=== PATIENT | female | born 1965 | race Caucasian/White ===

== ENCOUNTER → 2019-12-27 07:52 | Outpatient (CLI) | payer OTHER, SELFPAY ==
--- NOTE | 2019-12-27 | DI.US.S_ITS ---
PROCEDURE: US ABDOMEN COMPLETE INDICATIONS: RIGHT UPPER QUADRANT PAIN, LUMP TECHNIQUE: Real-time scanning was performed of the abdominal and retroperitoneal organs, with image documentation. COMPARISON: [facility], CT, KIDNEY/ URETER/BLADDER, 02/24/2016, 3:25. FINDINGS: Liver: Liver is normal in size and demonstrates diffuse increased echotexture. Gallbladder: There is a 5.3 mm polyp in the left anterior wall of the gallbladder. No gallstones. No gallbladder wall thickening, pericholecystic fluid or sonographic Montanez's sign. Biliary ducts: Intrahepatic bile ducts are non-dilated. Extrahepatic bile duct caliber measures 3.9 mm. Normal is 6-7 mm or less in diameter, or 10 mm or less post-cholecystectomy. Pancreas: Visualized portions of the pancreas are sonographically normal. Spleen: Spleen is normal in size and homogeneous in echotexture. Kidneys: Kidneys are normal in size and echotexture. Right kidney measures 11.1 cm long; left kidney measures 11.1 cm long. No hydronephrosis or nephrolithiasis. No solid masses. Aorta: Visualized aorta is normal in caliber at less than 3 cm. Iliacs: Proximal common iliac arteries are normal in caliber at less than 2.5 cm. IVC: Intrahepatic inferior vena cava is patent. Miscellaneous: No free abdominal fluid. No mass or abnormality is identified in the area of palpable lump. . IMPRESSION: 1. No sonographic abnormality is seen in the area palpable lump. 2. A 5.3 mm polyp in the gallbladder. A follow-up ultrasound is suggested in 6 months. 3. Diffusely increased hepatic echotexture. This finding is most likely secondary to hepatic fatty infiltration although other hepatocellular disease may have a similar appearance. Recommend clinical correlation. Dictated by: Slava Guerrero M.D. on 12/28/2019 at 16:23 Approved by: Slava Guerrero M.D. on 12/28/2019 at 16:26
== END ==
LOC: US 07:56
PROVIDERS: PCP Family Medicine; Referring Provider Nurse Practitioner Family; Visit Provider Nurse Practitioner Family
DX: R10.11 Right upper quadrant pain (principal); R19.01 Right upper quadrant abdominal swelling, mass and lump; K82.4 Cholesterolosis of gallbladder
CPT/HCPCS: 76700

== ENCOUNTER → 2020-01-28 09:13 | Outpatient (CLI) | payer OTHER, SELFPAY ==
[2020-01-29 10:44] LABS: COVID19 Sendout Not Detected (Not Detect)
== END ==
PROVIDERS: PCP Family Medicine; Visit Provider Physician Assistant
DX: Z11.59 Encounter for screening for other viral diseases (principal)
CPT/HCPCS: 87635

== ENCOUNTER 2020-01-31 06:40 | Day surgery (SDC) | payer OTHER, SELFPAY ==
[2020-01-25 12:45] VITALS: BMI 31.7
[2020-01-31] VITALS (10 sets, daily range): BP systolic 118–147; BP diastolic 69–83; PULSE 60–636; RESP 12–94; TEMP 36–36.6; O2SAT 90–97; BMI 30.2
--- NOTE | 2020-01-31 | PATH_ITS ---
[facility] Accession Number: [id number] . 01 Material submitted: . gallbladder - GALLBLADDER . 02 Diagnosis: Gallbladder, Cholecystectomy: Mild chronic cholecystitis. No evidence of neoplasm. [facility] 02/02/2020 1108 Local . 02 Electronically signed: . Amanuel Damian MD, PhD, Pathologist NPI- [id number] . 01 Gross description: . Received in formalin, labeled gallbladder, is a 7.0 x 3.0 x 2.0 cm previously opened gallbladder. The serosa is solis-green and smooth. There is a minimal amount of green viscous bile and mild cholesterolosis. The mucosa is solis-green and velvety, and the wall thickness measures 0.1 cm. The specimen is entirely submitted in cassette A1. (EA/cmc10 [id number]) /[facility] 02/01/2020 1323 Local . 02 Pathologist provided ICD-10: K81.1, R10.9 . 02 CPT . 346429 Performed at: 01 [facility] [address] [facility], [place], [place] [id number] MD Chris Gonzalez MD Phone: [phone] Performed at: 02 [facility] [address] [place], [place] [id number] MD Carlyn Her MD Phone: [phone]
[2020-01-31] MEDS: LACTATED RINGERS 1,000 ML 42 ML IV (07:30)
[2020-01-31] MEDS: LACTATED RINGERS 1,000 ML 100 ML IV (07:30)
--- NOTE | 2020-01-31 07:41 | PM.PREOP ---
Pre-operative Note COVID-19 COVID-19 status: Negative Result date/Date tested (Pos, Neg/Pending): 01/28/20 Interval Note History & Physical reviewed/Exam performed by Physician: Yes Changes to H&P: No
[2020-01-31] MEDS: CEFAZOLIN 2 GM/100 ML FROZ.PIGGY IV (07:50)
--- NOTE | 2020-01-31 08:19 | SUR.OPER ---
Supine on padded OR bed, head on pillow, arms secured on padded arm boards at <90 degrees abduction, legs uncrossed, safety belt at thigh, tape over blanket over lower legs.
[2020-01-31] MEDS: BUPIVACAINE 0.5% (PF) VIAL 30 ML INJ (08:28)
--- NOTE | 2020-01-31 09:17 | P.OP_ITS ---
Operative Date/Time/Diagnoses Date of procedure: 01/31/20 Time of procedure: 09:05 Pre-op diagnosis: Gallbladder polyp and right upper quadrant and back pain . Possible ventral hernia Post-op diagnosis: other (Very small gallbladder polyp. Soft stone. No evidence of a ventral hernia.) Procedure & Clinicians Procedure: Laparoscopic cholecystectomy. Same procedure as scheduled: Yes Indications: See preop diagnosis Surgeon: Kumar Winn Click Yes if Unassisted: Yes Anesthesia Type: General Operative Notes Findings: See postop diagnosis Closure Type: primary Specimen(s): other (Gallbladder and contents.) Prosthetic devices, grafts, tissues, transplants, or devices: None Estimated Blood Loss (mL): 5 Blood products transfused: none Procedure in detail: The patient was placed supine on the operating room table and underwent general endotracheal anesthesia. The patient was prepped and draped in the usual fashion. Local anesthetic was infiltrated near the umbilicus and curvilinear incision made and carried down through fascia into the peritoneal cavity. Stay sutures of 0 Vicryl were placed in the fascia. A 12 mm port was placed. The abdomen was insufflated. The patient was repositioned. Local anesthetic was infiltrated in 3 areas under the right costal margin and 3 small incisions made followed by placing 3 5 mm ports under direct laparoscopic camera vision internally. The gallbladder was grasped and elevated. Dissection was begun near its end. A ductal structure and vascular structure singular nature going directly the gallbladder were identified and from surroun ding structures. Four clips were placed on the vascular structure and 3 on the duct. They were divided leaving 2 clips on the cystic duct and 3 on the artery. One additional clip was placed on the end of the cystic duct.. The gallbladder was then dissected from its bed in the liver using cautery. There was no spillage. It was detached and removed through the umbilical port. the gallbladder was opened and found to have a very small polyp like lesion as well as a soft stone within its lumen. I examined the ventral abdominal wall in the area of the patient that she felt a bulge. I could not identify any defect in the posterior fascia on could not palpate any defect. I also dissected some of the fat from the abdominal wall at the falciform ligament to the midline and could not identify any defect in the fascia at that level either. The ports were all removed after irrigating the right upper quadrant suction it free of fluid. The port sites were all irrigated. The stay sutures at the umbilicus were elevated. A 2 0 PDS suture was placed between them. The Vicryl and PDS sutures were then tied. The skin in all areas was closed with interrupted 4 0 Vicryl subcuticular stitches. Steri-Strips and Mastisol were applied. Band- Aids were placed and the patient was awakened, extubated and taken to the recovery area in good condition. Complications: none Post-operative Condition: stable Disposition: PACU
[2020-01-31] MEDS: fentaNYL 100 MCG/2 ML INJ IV ×2 (09:20→09:28)
[2020-01-31] MEDS: ONDANSETRON 4 MG/2 ML INJ IV (09:20)
[2020-01-31] MEDS: OXYCODONE/ACETAMINOPHEN 5/325 TABLET 1 TAB PO (09:44)
== END 2020-01-31 10:20 | disposition home or self-care (01) ==
PROVIDERS: PCP Family Medicine; Referring Provider Family Medicine; Visit Provider Specialist
PROC: 0FT44ZZ Resection of Gallbladder, Percutaneous Endoscopic Approach (ICD-10-PCS; CPT 47562; principal; 2020-01-31 07:45)
DX: K81.1 Chronic cholecystitis (principal); R10.11 Right upper quadrant pain; E03.9 Hypothyroidism, unspecified; F17.200 Nicotine dependence, unspecified, uncomplicated
CPT/HCPCS: 47562; J0690; J1100; J2250; J2405; J2704; J3010

== ENCOUNTER 2021-07-31 20:08 | Observation (INO) | payer BC, SELFPAY ==
[2021-07-31 20:22] VITALS: BP 133/77; PULSE 94; RESP 22; TEMP 37; O2SAT 98; BMI 32.9
[2021-07-31 20:49] LABS: Add Manual Diff / Slide Review NO; Basophils Absolute Auto 100 /uL (0-100); Basophils Percent Auto 0.6 % (0-2); Eosinophils Absolute Auto 200 /uL (0-450); Eosinophils Percent Auto 2.3 % (2-4); Hematocrit 40.1 % (36-46); Hemoglobin 13.6 g/dL (12.0-16.0); Lymphocytes Absolute Auto 2100 /uL (1100-4500); Lymphocytes Percent Auto 20.4 % (25-40); Mean Corpuscular HGB Conc 33.8 % (30-36); Mean Corpuscular Volume 88.9 fL (80-100); Monocytes Absolute Auto 400 /uL (0-900); Monocytes Percent Auto 4.2 % (3-14); Neutrophils Absolute Auto 7500 /uL (1500-7000); Neutrophils Percent Auto 72.5 % (50-75); Platelet Count 271 X10^3/uL (150-400); Red Blood Cell Count 4.51 X10^6/uL (4.0-5.2); White Blood Cell Count 10.3 X10^3/uL (4.5-11.0)
[2021-07-31 21:10] LABS: Alanine Aminotransferase 29 IU/L (<35); Albumin 4.1 g/dL (3.5-5.0); Albumin Globulin Ratio 1.3 (1.0-2.8); Alkaline Phosphatase 120 U/L (38-126); Aspartate Aminotransferase 28 IU/L (14-36); BUN Creatinine Ratio 29.7 (6-22); Bilirubin Total 0.3 mg/dL (0.2-1.3); Blood Urea Nitrogen 22 mg/dL (7-17); Carbon Dioxide 24 mmol/L (22-32); Chloride 110 mmol/L (98-107); Estimated Glomerular Filt Rate > 60.0 mL/min (>60); Globulin 3.1 g/dL (1.7-4.1); Glucose 107 mg/dL (70-100); Lipase 40 U/L (23-300); Potassium 3.9 mmol/L (3.4-5.1); Sodium 139 mmol/L (137-145); Total Protein 7.2 g/dL (6.3-8.2)
[2021-07-31 21:11] LABS: HEMOLYSIS < 15 (0-50)
--- NOTE | 2021-07-31 21:36 | DI.CT.S_ITS ---
PROCEDURE: CT ABDOMEN PELVIS W CON INDICATIONS: Left-sided abdominal pain TECHNIQUE: After the administration of intravenous contrast, axial sections acquired from the lung bases to the pubic symphysis. Coronal and sagittal reformats were performed. For radiation dose reduction, the following was used: automated exposure control, adjustment of mA and/or kV according to patient size. COMPARISON: None. FINDINGS: Image quality: Excellent. Lung bases: Unremarkable. Heart: No significant findings. ABDOMEN: Liver: Unremarkable. Gallbladder: Is surgically absent Biliary ducts: Unremarkable. Pancreas: Unremarkable. Spleen: Unremarkable. Adrenal Glands: Left adrenal nodule demonstrating postcontrast Hounsfield units of 39, measuring roughly 23 mm diameter.. Kidneys and Ureters: Unremarkable. Stomach and Bowel: Stomach is within normal limits. Multiple moderately thickened fluid-filled small bowel loops within the left hemiabdomen are present. Appendix is normal. Colon is nondistended. Diverticulosis of the descending and sigmoid colon. Moderate thickening of the sigmoid colon which demonstrates moderate surrounding fat stranding. No pericolonic abscess. Peritoneum: Small amount of scattered pneumoperitoneum. Trace free fluid in the pelvis. Ventral Wall: No hernias. Abdominal Nodes: No retroperitoneal or mesenteric adenopathy by size criteria. Vessels: Aorta and inferior vena cava are normal in size. PELVIS: Pelvic Organs: Unremarkable. Bladder: Unremarkable. Pelvic Nodes: No enlarged lymph nodes. Miscellaneous: No hernias are seen. Bones: Unremarkable. IMPRESSION: 1. Perforated diverticulitis with free pneumoperitoneum. No pericolonic abscess. Follow-up colonoscopy is recommended to exclude underlying neoplasm. 2. Indeterminate left adrenal nodule, which could be further assessed with nonemergent outpatient follow-up adrenal protocol MRI, if clinically indicated. 3. Normal appendix. 4. Findings discussed with Dr. Molina on 07/31/2021 at 21:57 hours. Dictated by: Digna Lord M.D. on 07/31/2021 at 21:54 Approved by: Digna Lord M.D. on 07/31/2021 at 21:57
--- NOTE | 2021-07-31 21:36 | ED_ITS ---
HPI - General Adult General Chief complaint: Abdominal Pain Stated complaint: severe abd pain Time Seen by Provider: 07/31/21 21:28 Source: patient Mode of arrival: Ambulatory History of Present Illness HPI narrative: Patient is a 55-year-old female who is here for evaluation of bilateral lower abdominal pain. States that it started at the end of last week but it has worsened over the past 24 hours. She actually stated that a couple days after the onset of the symptoms her pain actually improved. It never completely went away. Some nausea but no vomiting. No fevers. No change in bowel habits. No urinary symptoms. Has had her gallbladder removed but no other abdominal surgeries. Related Data Home Medications Medication Instructions Recorded Confirmed dextroamphetamine-amphetamine 10 30 mg PO DAILY #0 02/24/16 02/10/20 mg tablet (Adderall) levothyroxine 88 mcg capsule 100 mcg PO DAILY 01/25/20 02/10/20 Previous Rx's Medication Instructions Recorded hydrocodone 5 mg-acetaminophen 325 See Rx Instructions .ROUTE 01/31/20 mg tablet .COMPLEX PRN #14 tab Allergies Allergy/AdvReac Type Severity Reaction Status Date / Time codeine Allergy Intermediate Rash Verified 02/10/20 13:07 Penicillins Allergy Intermediate Rash Verified 02/10/20 13:07 Review of Systems Review of Systems ROS Unobtainable: All systems reviewed & are unremarkable except as noted in HPI and below Constitutional Constitutional: Denies fever(s) Cardiovascular Cardiovascular: Denies chest pain and Denies dyspnea Respiratory Respiratory: Denies dyspnea Gastrointestinal Gastrointestinal: Reports as per HPI Patient History Medical History Easy bruisability Gallstones Hypothyroid Surgical History Hx of appendectomy Hx of tonsillectomy (1981) Hx of tubal ligation (1989) Family History Mother Cancer Social History marital status: unknown household members: significant other and friend(s) occupational status: employed Smoking Status: Current every day smoker alcohol intake: current substance use type: does not use Smoking Status: Current every day smoker alcohol intake frequency: a few times a week Substance Use Type: does not use Exam Initial Vital Signs Initial Vital Signs: Vital Signs Temperature 98.6 F 07/31/21 20:22 Pulse Rate 94 H 07/31/21 20:22 Respiratory Rate 22 07/31/21 20:22 Blood Pressure 133/77 07/31/21 20:22 Pulse Oximetry 98 07/31/21 20:22 Const General: cooperative and comfortable HENMT Head: normal to inspection and normocephalic Eyes General: appearance normal, both eyes and all related structures Neck Neck: normal visual inspection Chest Chest: normal inspection of the chest Resp Effort & Inspection: normal respiratory effort Auscultation: clear to auscultation bilaterally Cardio Rate: regular rate Rhythm: regular rhythm GI Inspection: normal to inspection Palpation: soft, No firm, No guarding and tender (Lower abdomen) Skin General: no rashes or lesions noted Neuro General: patient alert, patient awake and moves all extremities Extrem General: normal to inspection and capillary refill normal Psych Appearance: grossly normal Scores GCS [place] coma scale eye opening: Spontaneous [place] coma scale verbal response: Orientated Jennifer coma scale motor response: Obey commands Jennifer coma scale total score: 15 Course Orders Ordered: ED Orders 07/31/21 20:27 EKG-12 Lead Stat 07/31/21 20:40 Complete Blood Count AUTO DIFF Stat Comprehensive Metabolic Panel Stat Lactate (Lactic Acid) Stat Lipase Stat 07/31/21 21:36 CT abdomen pelvis w con Stat 07/31/21 22:03 Blood Culture Stat 07/31/21 22:11 Consult to General Surgery Stat 07/31/21 22:27 COVID19 -Nasal swab/Pre-Proc Stat Enoxaparin Sodium (Enoxaparin 40 Mg/0.4 Ml Syringe) 40 mg SUBCUT DAILY TA Hydromorphone HCl (Hydromorphone 0.5 Mg Inj) 0.5 mg IV Q4H PRN PRN Reason: Breakthrough pain only (8-10) Sodium Chloride (Normal Saline 0.9%) 1,000 mls @ 100 mls/hr IV CONT TA Ciprofloxacin (Cipro) 400 mg in 200 mls @ 200 mls/hr IV Q12H TA Metronidazole (Flagyl) 500 mg in 100 mls @ 100 mls/hr IV Q6H TA Ketorolac Tromethamine (Ketorolac 30 Mg/Ml Vial) 15 mg IV Q6H PRN PRN Reason: Pain, Moderate (4-6) Stop: 08/04/21 00:14 Naloxone HCl (Naloxone 0.4 Mg/Ml Vial) 0.2 mg IV Q2MIN PRN PRN Reason: Opiate Reversal Ondansetron HCl (Ondansetron 4 Mg/2 Ml Inj) 4 mg IV Q6HR PRN PRN Reason: Nausea And Vomiting Discontinued Medications Hydromorphone HCl (Hydromorphone 0.5 Mg Inj) 0.5 mg IV NOW ONE Stop: 07/31/21 22:45 Last Admin: 07/31/21 22:49 Dose: 0.5 mg Documented by: SAIRA Sodium Chloride (Normal Saline 0.9%) 1,000 mls @ 1,000 mls/hr IV BOLUS ONE Stop: 07/31/21 22:35 Last Admin: 07/31/21 21:56 Dose: 1,000 mls/hr Documented by: SAIRA Ciprofloxacin (Cipro) 400 mg in 200 mls @ 200 mls/hr IV NOW ONE Stop: 07/31/21 23:02 Last Admin: 08/01/21 00:04 Dose: 200 mls/hr Documented by: SAIRA Metronidazole (Flagyl) 500 mg in 100 mls @ 100 mls/hr IV NOW ONE Stop: 07/31/21 23:02 Last Infusion: 07/31/21 23:26 Dose: 0 mls/hr Documented by: Admin: 07/31/21 22:20 Dose: 100 mls/hr Documented by: SAIRA Ondansetron HCl (Ondansetron 4 Mg/2 Ml Inj) 4 mg IV Q2HR PRN PRN Reason: Nausea And Vomiting Vital Signs Vital signs: Vital Signs - 8 hr 07/31/21 20:22 Temperature 98.6 F Pulse Rate 94 H Respiratory Rate 22 Blood Pressure 133/77 Pulse Oximetry 98 Medical Decision Making Medical Records Medical records reviewed: Yes I reviewed the patient's medical records. Lab Data Lab results reviewed: Yes I reviewed the patient's lab results. Result diagrams: 07/31/21 20:40 07/31/21 20:40 Labs: Lab Results 07/31/21 07/31/21 07/31/21 Range/Units 20:40 20:40 20:40 WBC 10.3 (4.5-11.0) X10^3/uL RBC 4.51 (4.0-5.2) X10^6/uL Hgb 13.6 (12.0-16.0) g/dL Hct 40.1 (36-46) % MCV 88.9 (80-100) fL MCH 30.0 (26-34) PG MCHC 33.8 (30-36) % RDW 14.0 (11.6-14.8) % Plt Count 271 (150-400) X10^3/uL Neut % (Auto) 72.5 (50-75) % Lymph % (Auto) 20.4 L (25-40) % Crowley % (Auto) 4.2 (3-14) % Eos % (Auto) 2.3 (2-4) % Baso % (Auto) 0.6 (0-2) % Neut # (Auto) 7500 H (3682-9191) /uL Lymph # (Auto) 2100 (4590-5378) /uL Crowley # (Auto) 400 (0-900) /uL Eos # (Auto) 200 (0-450) /uL Baso # (Auto) 100 (0-100) /uL Sodium 139 (137-145) mmol/L Potassium 3.9 (3.4-5.1) mmol/L Chloride 110 H (98-107) mmol/L Carbon Dioxide 24 (22-32) mmol/L BUN 22 H (7-17) mg/dL Creatinine 0.74 (0.52-1.04) mg/dL Estimated GFR > 60.0 (>60) mL/min BUN/Creatinine Ratio 29.7 H (6-22) Glucose 107 H (70-100) mg/dL Lactate 0.6 L (0.7-2.1) mmol/L Calcium 9.0 (8.4-10.2) mg/dL Total Bilirubin 0.3 (0.2-1.3) mg/dL AST 28 (14-36) IU/L ALT 29 (<35) IU/L Alkaline Phosphatase 120 (38-126) U/L Total Protein 7.2 (6.3-8.2) g/dL Albumin 4.1 (3.5-5.0) g/dL Globulin 3.1 (1.7-4.1) g/dL Albumin/Globulin Ratio 1.3 (1.0-2.8) Lipase 40 (23-300) U/L SARS-CoV-2 (PCR) (Negative) 07/31/21 Range/Units 22:27 WBC (4.5-11.0) X10^3/uL RBC (4.0-5.2) X10^6/uL Hgb (12.0-16.0) g/dL Hct (36-46) % MCV (80-100) fL MCH (26-34) PG MCHC (30-36) % RDW (11.6-14.8) % Plt Count (150-400) X10^3/uL Neut % (Auto) (50-75) % Lymph % (Auto) (25-40) % Crowley % (Auto) (3-14) % Eos % (Auto) (2-4) % Baso % (Auto) (0-2) % Neut # (Auto) (3453-5964) /uL Lymph # (Auto) (6735-2143) /uL Crowley # (Auto) (0-900) /uL Eos # (Auto) (0-450) /uL Baso # (Auto) (0-100) /uL Sodium (137-145) mmol/L Potassium (3.4-5.1) mmol/L Chloride (98-107) mmol/L Carbon Dioxide (22-32) mmol/L BUN (7-17) mg/dL Creatinine (0.52-1.04) mg/dL Estimated GFR (>60) mL/min BUN/Creatinine Ratio (6-22) Glucose (70-100) mg/dL Lactate (0.7-2.1) mmol/L Calcium (8.4-10.2) mg/dL Total Bilirubin (0.2-1.3) mg/dL AST (14-36) IU/L ALT (<35) IU/L Alkaline Phosphatase (38-126) U/L Total Protein (6.3-8.2) g/dL Albumin (3.5-5.0) g/dL Globulin (1.7-4.1) g/dL Albumin/Globulin Ratio (1.0-2.8) Lipase (23-300) U/L SARS-CoV-2 (PCR) Negative (Negative) Imaging Data CT scan - abdomen/pelvis: Radiologist's Impression: [address] [address] [address] Scan Report Signed Patient: Marci Motta MR#: [id number] : 1965 Acct:[id number] Age/Sex: 55 / F Date of Service: 07/31/21 Loc: ED Accession Number: [id number] ?? Procedure: CT abdomen pelvis w con Ordering Provider: Kwabena Molina D.O. PROCEDURE:? CT ABDOMEN PELVIS W CON ? INDICATIONS:? Left-sided abdominal pain ? TECHNIQUE:? After the administration of intravenous contrast, axial sections acquired from the lung bases to the pubic symphysis.? Coronal and sagittal reformats were performed.? For radiation dose reduction, the following was used:? automated exposure control, adjustment of mA and/or kV according to patient size.? ? COMPARISON:? None. ? FINDINGS:? Image quality:? Excellent.? ? Lung bases:? Unremarkable. Heart:? No significant findings. ? ABDOMEN: Liver:? Unremarkable.? ? Gallbladder:? Is surgically absent? ? Biliary ducts:? Unremarkable.? ? Pancreas:? Unremarkable.? ? Spleen:? Unremarkable.? ? Adrenal Glands:? Left adrenal nodule demonstrating postcontrast Hounsfield units of 39, measuring roughly 23 mm diameter..? ? Kidneys and Ureters:? Unremarkable.? ? ? Stomach and Bowel:? Stomach is within normal limits.? Multiple moderately thickened fluid-filled small bowel loops within the left hemiabdomen are present.? Appendix is normal.? Colon is nondistended.? Diverticulosis of the descending and sigmoid colon.? Moderate thickening of the sigmoid colon which demonstrates moderate surrounding fat stranding.? No pericolonic abscess.? Peritoneum:? Small amount of scattered pneumoperitoneum.? Trace free fluid in the pelvis. ? ? Ventral Wall: ? No hernias.? Abdominal Nodes:? No retroperitoneal or mesenteric adenopathy by size criteria.? Vessels:? Aorta and inferior vena cava are normal in size.? ? PELVIS: Pelvic Organs:? Unremarkable.? ? Bladder:? Unremarkable.? ? Pelvic Nodes: No enlarged lymph nodes.? Miscellaneous: No hernias are seen. ? ? ? Bones:? Unremarkable.? IMPRESSION:? 1. Perforated diverticulitis with free pneumoperitoneum.? No pericolonic abscess.? Follow-up colonoscopy is recommended to exclude underlying neoplasm. 2. Indeterminate left adrenal nodule, which could be further assessed with nonemergent outpatient follow-up adrenal protocol MRI, if clinically indicated. 3. Normal appendix. 4. Findings discussed with Dr. Molina on 07/31/2021 at 21:57 hours.? ? ? Dictated by: Digna Lord M.D. on 07/31/2021 at 21:54 ? ? Approved by: Digna Lord M.D. on 07/31/2021 at 21:57?? ECG Data Attestation: I personally reviewed and interpreted this ECG as follows: Interpretation: Sinus rhythm Ventricular rate 91 Normal axis Normal QRS axis normal QTC No ST T wave changes MDM Narrative Medical decision making narrative: Initially patient declined need for pain medication. Labs are reassuring. CT scan shows diverticulitis with what appears to be a perforation with free air in the abdomen. There is no signs of abscess. Given her allergies Cipro and Flagyl was ordered. I did discuss the case with Dr. White on-call for General surgery who asked the patient be admitted to the medicine service. He stated that we would attempt non operative management of her diverticulitis for now. Discussed the case with [facility] who will admit for further evaluation and treatment. I did discuss the findings of the CT scan with the patient. We did discuss the need for admission. She expressed understanding and agreement as well. Discharge Plan Departure Patient Disposition: Admitted As Inpatient Clinical Impression: Diverticulitis of colon with perforation Admit Date/Time: 07/31/21 23:27 Admit Provider: Alejandra Marquez
[2021-07-31] MEDS: SODIUM CHLORIDE 0.9% 1,000 ML 1000 ML IV (21:56)
[2021-07-31 22:13] LABS: Lactate (Lactic Acid) 0.6 mmol/L (0.7-2.1)
[2021-07-31] MEDS: metroNIDAZOLE 500 MG/100 ML PIGGYBACK 100 MG IV (22:20)
[2021-07-31] MEDS: HYDROMORPHONE 0.5 MG INJ IV (22:49)
[2021-07-31 23:06] LABS: COVID19 -Nasal RAPID Negative (Negative)
[2021-07-31 23:33] VITALS: BMI 33.5
[2021-08-01] MEDS: CIPROFLOXACIN 400 MG/200 ML PIGGYBACK 200 MG IV (00:04)
[2021-08-01 00:18] VITALS: BP 116/58; PULSE 89; RESP 20; O2SAT 98
--- NOTE | 2021-08-01 00:46 | P.HP_ITS ---
History of Present Illness History of Present Illness Date Patient Seen: 08/01/21 Time Patient Seen: 00:46 Chief complaint: severe abd pain Narrative: Marci Motta is a 55-year-old female smoker with current diagnosis of hypothyroidism and ADD presented to the emergency department with a almost 1 week history of abdominal discomfort. She denies having diarrhea, fever but has significant abdominal pain. She denies nausea vomiting, chest pain, constipation, upper lower extremity neuropathies. CT scan of the abdomen and pelvis indicated perforated diverticulitis with free pneumoperitoneum, a left adrenal nodule and a normal appendix. ED provider consulted with general surgery who will see the patient in the morning. Recommended NPO, fluids and pain control. Patient is afebrile, blood pressure 116/58, heart rate 89, respiratory rate 20, oxygen saturation 98% on room air she weighs 83.2 kg with a BMI of 33.5. CBC is unremarkable she has a mild left shift of 7500, glucose was mildly elevated at 107, lactate 0.6, liver enzymes within normal limits, COVID-19 PCR is negative. Patient History Medical History (Updated 08/01/21 @ 03:22 by DIPESH Hernandez) Easy bruisability Gallstones Hypothyroid Tobacco dependence Surgical History (Updated 08/01/21 @ 03:22 by DIPESH Hernandez) Hx of appendectomy Hx of cholecystectomy Hx of tonsillectomy (1981) Hx of tubal ligation (1989) Family & Social History Family History (Updated 08/01/21 @ 03:30 by DIPESH Hernandez) Mother Cancer Eosinophilia Father Old age Social History: household members significant other,friend(s) Safety & Behavioral: Feels Safe in Current Yes Environment Tobacco & Substance use: Tobacco type cigarettes, 1 pack per day Smoking Status Current every day smoker alcohol intake current alcohol intake frequency a few times a week Substance Use Type does not use Meds Home Medications and Allergies Home Medications Medication Instructions Recorded Confirmed Type dextroamphetamine-amphetamine 10 30 mg PO DAILY #0 02/24/16 08/01/21 History mg tablet (Adderall) levothyroxine 88 mcg capsule 100 mcg PO DAILY 01/25/20 08/01/21 History Allergies Allergy/AdvReac Type Severity Reaction Status Date / Time codeine Allergy Intermediate Rash Verified 02/10/20 13:07 Penicillins Allergy Intermediate Rash Verified 02/10/20 13:07 Review of Systems Review of Systems ROS: Yes All systems reviewed with the patient and are negative except as otherwise documented Exam Vital Signs (past 8 hours): - 07/31/21 20:22 08/01/21 00:18 Temperature 98.6 F Pulse Rate 94 H 89 Respiratory Rate 22 20 Blood Pressure 133/77 116/58 L Pulse Oximetry 98 98 Oxygen Delivery Method Room Air Narrative Exam Narrative: Gen: Alert, oriented, well-nourished 55 y.o. female, mildly distressed from pain HEENT: normocephalic, atraumatic, conjunctiva clear, sclera non-icteric, oral mucosa pink and moist Neck: supple, full ROM, no JVD, trachea is midline Resp: Lungs CTA, non-labored breathing CV: RRR, no murmur or rubs Abd: soft, diffusely tender, hypoactive BTs Skin: no lesions or rashes, dry and intact Neuro: Alert and oriented X 4 w/no focal deficits. Speech clear and coherent. Extremities: moves all 4 extremities, is ambulatory, negative Xenia?s sign Psyche: normal mood and affect. Objective Labs Result Diagrams: 07/31/21 20:40 07/31/21 20:40 Labs: Laboratory Results - last 24 hr 07/31/21 07/31/21 07/31/21 20:40 20:40 20:40 WBC 10.3 RBC 4.51 Hgb 13.6 Hct 40.1 MCV 88.9 MCH 30.0 MCHC 33.8 RDW 14.0 Plt Count 271 Neut % (Auto) 72.5 Lymph % (Auto) 20.4 L [place] % (Auto) 4.2 Eos % (Auto) 2.3 Baso % (Auto) 0.6 Neut # (Auto) 7500 H Lymph # (Auto) 2100 [place] # (Auto) 400 Eos # (Auto) 200 Baso # (Auto) 100 Sodium 139 Potassium 3.9 Chloride 110 H Carbon Dioxide 24 BUN 22 H Creatinine 0.74 Estimated GFR > 60.0 BUN/Creatinine Ratio 29.7 H Glucose 107 H Lactate 0.6 L Calcium 9.0 Total Bilirubin 0.3 AST 28 ALT 29 Alkaline Phosphatase 120 Total Protein 7.2 Albumin 4.1 Globulin 3.1 Albumin/Globulin Ratio 1.3 Lipase 40 SARS-CoV-2 (PCR) 07/31/21 22:27 WBC RBC Hgb Hct MCV MCH MCHC RDW Plt Count Neut % (Auto) Lymph % (Auto) [place] % (Auto) Eos % (Auto) Baso % (Auto) Neut # (Auto) Lymph # (Auto) [place] # (Auto) Eos # (Auto) Baso # (Auto) Sodium Potassium Chloride Carbon Dioxide BUN Creatinine Estimated GFR BUN/Creatinine Ratio Glucose Lactate Calcium Total Bilirubin AST ALT Alkaline Phosphatase Total Protein Albumin Globulin Albumin/Globulin Ratio Lipase SARS-CoV-2 (PCR) Negative Assessment & Plan Assessment & Plan narrative: Marci Motta is admitted to the inpatient service for eventual surgical management of a perforated diverticulitis of descending and sigmoid colon. 1. Perforated diverticulitis of descending and sigmoid colon, acute, present on admission * General surgery to see her in the morning * She is NPO * Pain control with IV Dilaudid 1 mg q.3 hours as needed 2. Hypothyroidism, chronic * Patient is NPO and will receive her next dose of levothyroxine after surgery when able to take in by mouth 3. ADHD, chronic * Patient is NPO and will receive her next dose of Adderall after surgery when able to take in by mouth VTE Prophylaxis: Wells risk score 0 [X] Bilateral SCDs Patient is admitted to the inpatient service due to the severity of disease, risks of further disease progression and this stay is expected to exceed 2 midnights. FEN: IV fluids: NS at 100 ml/hour, diet: NPO, labs: CBC, C/BMP, liver enzymes, [facility] Dr. White, General Surgery, care and involvement in the patient?s care is appreciated. Dispo: probable discharge to home Code status: Full code as discussed with the patient who identifies Flaco HASSAN as her surrogate and POA. [X] I have utilized all available immediate resources to obtain, update, or review of the patient's current medications COVID-19 COVID-19 status: Negative Result date/Date tested (Pos, Neg/Pending): 08/01/21 Scores Wells' Criteria for PE Clinical signs and symptoms of DVT: No PE is #1 Dx or equally likely: No Heart rate > 100: No Immobilization at least 3 days or surg in previous 4 weeks: No History of PE or DVT: No Hemoptysis: No Malignancy w/Treatment within 6 months or palliative: No Wells' PE Score total: 0 Quality VTE Deep Vein Thrombosis/Pulmonary Embolism Present on Admission: No MIPS - Admit I confirm the patient?s Advance Care Plan is present, Code status is documented, Surrogate decision maker is in patient?s record [If Yes, STOP here]: Yes MIPS - DC The patient has current or prior documentation of left ventricular ejection fraction (LVEF) less than 40%, or moderate or severely depressed left ventricular systolic function.: No
[2021-08-01] MEDS: SODIUM CHLORIDE 0.9% 1,000 ML 100 ML IV ×2 (01:14→07:28)
[2021-08-01] MEDS: HYDROMORPHONE 0.5 MG INJ IV (01:14)
[2021-08-01] MEDS: HYDROMORPHONE 1 MG INJ IV ×3 (01:51→12:38)
[2021-08-01 06:26] LABS: Add Manual Diff / Slide Review NO; Basophils Absolute Auto 100 /uL (0-100); Basophils Percent Auto 0.6 % (0-2); Eosinophils Absolute Auto 0 /uL (0-450); Eosinophils Percent Auto 0.2 % (2-4); Hematocrit 37.7 % (36-46); Hemoglobin 12.6 g/dL (12.0-16.0); Lymphocytes Absolute Auto 1200 /uL (1100-4500); Lymphocytes Percent Auto 7.4 % (25-40); Mean Corpuscular HGB Conc 33.5 % (30-36); Mean Corpuscular Hemoglobin 29.6 PG (26-34); Mean Corpuscular Volume 88.2 fL (80-100); Monocytes Absolute Auto 600 /uL (0-900); Monocytes Percent Auto 3.7 % (3-14); Neutrophils Absolute Auto 14700 /uL (1500-7000); Neutrophils Percent Auto 88.1 % (50-75); Platelet Count 251 X10^3/uL (150-400); Red Blood Cell Count 4.27 X10^6/uL (4.0-5.2); Red Cell Distribution Width 14.1 % (11.6-14.8); White Blood Cell Count 16.7 X10^3/uL (4.5-11.0)
[2021-08-01 06:40] LABS: Alanine Aminotransferase 29 IU/L (<35); Albumin 3.4 g/dL (3.5-5.0); Albumin Globulin Ratio 1.2 (1.0-2.8); Alkaline Phosphatase 90 U/L (38-126); Aspartate Aminotransferase 27 IU/L (14-36); BUN Creatinine Ratio 27.3 (6-22); Bilirubin Total 0.6 mg/dL (0.2-1.3); Bilirubin Unconjugated 0.5 mg/dL (0.0-1.1); Blood Urea Nitrogen 15 mg/dL (7-17); Calcium 8.5 mg/dL (8.4-10.2); Carbon Dioxide 26 mmol/L (22-32); Chloride 109 mmol/L (98-107); Estimated Glomerular Filt Rate > 60.0 mL/min (>60); Globulin 2.9 g/dL (1.7-4.1); Glucose 121 mg/dL (70-100); HEMOLYSIS < 15 (0-50); Potassium 3.9 mmol/L (3.4-5.1); Sodium 137 mmol/L (137-145); Total Protein 6.3 g/dL (6.3-8.2)
[2021-08-01] MEDS: KETOROLAC 30 MG/ML VIAL 15 MG IV (07:24)
[2021-08-01] MEDS: ENOXAPARIN 40 MG/0.4 ML SYRINGE SUBCUT (08:49)
[2021-08-01 08:52] VITALS: BP 100/59; PULSE 70; RESP 18; TEMP 36.8; O2SAT 95
[2021-08-01 12:26] VITALS: BP 109/81; PULSE 89; RESP 16; O2SAT 91
--- NOTE | 2021-08-01 14:49 | PC.NURSE ---
Patient stated I'm either going outside for a cigarette or I'm going home right now. Dr. Amador called to bedside, nicotine patch offered. Dr. Amador wrote for discharge with PO abx, sent to [facility] in [place]. No tele, IV removed, discharge papers given. Patient left hastily.
== END 2021-08-01 14:40 | disposition home or self-care (01) | DRG 392 ==
LOC: ED 22:44 → ICU 08-01 09:58 → AC 05-02 14:41
PROVIDERS: Admitting Provider Nurse Practitioner Family; Emergency Provider Emergency Medicine; PCP Family Medicine; Referring Provider Emergency Medicine; Visit Provider Nurse Practitioner Family
DX: K57.20 Diverticulitis of large intestine with perforation and abscess without bleeding (principal); F17.210 Nicotine dependence, cigarettes, uncomplicated; Z20.822 Contact with and (suspected) exposure to COVID-19
CPT/HCPCS: 36415; 74177; 80048; 80053; 80076; 83605; 83690; 85025; 87635; 87797; 96361; 96365; 96367; 96375; 99284; C9803; G0378; J0744; J1170; J1650; J1885; Q9967

== ENCOUNTER 2021-08-03 15:57 | Inpatient (IN) | payer BC, SELFPAY ==
[2021-08-03] VITALS (12 sets, daily range): BP systolic 101–127; BP diastolic 56–74; PULSE 87–113; RESP 16–34; TEMP 36.9–37.2; O2SAT 91–99; BMI 32.9; BMI 33.6
--- NOTE | 2021-08-03 16:32 | DI.RAD.S_ITS ---
PROCEDURE: XR CHEST 1V INDICATIONS: suspected sepsis TECHNIQUE: One view of the chest was acquired. COMPARISON: [facility], CT, CT ABDOMEN PELVIS W CON, 07/31/2021, 21:42. [facility], CT, CT ABDOMEN PELVIS W CON, 08/03/2021, 17:16. FINDINGS: Surgical changes and devices: None. Lungs and pleura: There are confluent left basilar opacities consistent with consolidation. Linear right basilar opacities may also represent consolidation, versus atelectasis. No pleural effusions or pneumothorax. Mediastinum: Mediastinal contours appear normal. Heart size is normal. Bones and chest wall: No suspicious bony lesions. Overlying soft tissues appear unremarkable. IMPRESSION: 1. Left lower lobe consolidation suspicious for pneumonia. Linear right basilar atelectasis or consolidation also demonstrated. Dictated by: Chris Bedolla M.D. on 08/03/2021 at 18:06 Approved by: Chris Bedolla M.D. on 08/03/2021 at 18:07
[2021-08-03 16:51] LABS: Add Manual Diff / Slide Review NO; Basophils Absolute Auto 100 /uL (0-100); Basophils Percent Auto 0.5 % (0-2); Eosinophils Absolute Auto 100 /uL (0-450); Eosinophils Percent Auto 0.4 % (2-4); Hematocrit 38.6 % (36-46); Hemoglobin 12.9 g/dL (12.0-16.0); Lymphocytes Absolute Auto 1500 /uL (1100-4500); Lymphocytes Percent Auto 8.3 % (25-40); Mean Corpuscular HGB Conc 33.4 % (30-36); Mean Corpuscular Hemoglobin 29.7 PG (26-34); Mean Corpuscular Volume 88.9 fL (80-100); Monocytes Absolute Auto 1100 /uL (0-900); Neutrophils Absolute Auto 15000 /uL (1500-7000); Neutrophils Percent Auto 84.8 % (50-75); Platelet Count 289 X10^3/uL (150-400); Red Blood Cell Count 4.34 X10^6/uL (4.0-5.2); Red Cell Distribution Width 13.8 % (11.6-14.8); White Blood Cell Count 17.7 X10^3/uL (4.5-11.0)
[2021-08-03] MEDS: SODIUM CHLORIDE 0.9% 1,000 ML 1000 ML IV (16:57)
[2021-08-03 16:59] LABS: INR 1.3 (0.9-1.3); Prothrombin Time 14.8 SECONDS (10.1-12.7)
[2021-08-03 17:01] LABS: PTT Partial Thromboplastin Tim 35 SECONDS (26.4-36.2)
[2021-08-03 17:02] LABS: Lactate (Lactic Acid) 0.6 mmol/L (0.7-2.1)
[2021-08-03 17:04] LABS: Alanine Aminotransferase 26 IU/L (<35); Albumin 3.7 g/dL (3.5-5.0); Albumin Globulin Ratio 1.2 (1.0-2.8); Alkaline Phosphatase 120 U/L (38-126); Aspartate Aminotransferase 24 IU/L (14-36); BUN Creatinine Ratio 17.9 (6-22); Bilirubin Total 0.6 mg/dL (0.2-1.3); Blood Urea Nitrogen 10 mg/dL (7-17); Calcium 8.7 mg/dL (8.4-10.2); Carbon Dioxide 24 mmol/L (22-32); Chloride 105 mmol/L (98-107); Estimated Glomerular Filt Rate > 60.0 mL/min (>60); Globulin 3.2 g/dL (1.7-4.1); Glucose 103 mg/dL (70-100); HEMOLYSIS < 15 (0-50); Lipase 14 U/L (23-300); Potassium 3.4 mmol/L (3.4-5.1); Sodium 134 mmol/L (137-145); Total Protein 6.9 g/dL (6.3-8.2)
--- NOTE | 2021-08-03 17:09 | DI.CT.S_ITS ---
PROCEDURE: CT ABDOMEN PELVIS W CON INDICATIONS: recent perforated diverticulitis, worsening pain TECHNIQUE: After the administration of oral and IV contrast, axial sections were acquired from the lung bases to the pubic symphysis. Coronal and sagittal reformats were performed. For radiation dose reduction, the following was used: automated exposure control, adjustment of mA and/or kV according to patient size. COMPARISON: [facility], CT, KIDNEY/ URETER/BLADDER, 02/24/2016, 3:25. [facility], CT, CT ABDOMEN PELVIS W CON, 07/31/2021, 21:42. FINDINGS: Image quality: Excellent. Lung bases: There is new posterior consolidation within the left lower lobe as well as linear opacities in the right lower lobe posteriorly likely representing atelectasis. Heart: Heart is normal in size. ABDOMEN: Liver: No mass lesion. Gallbladder: Surgically absent. Biliary ducts: No biliary ductal dilatation. Pancreas: Unremarkable. Spleen: The spleen is borderline enlarged, measuring up to 13.1 cm. Multiple punctate calcifications are demonstrated throughout the spleen consistent with sequelae of old granulomatous disease. Adrenal Glands: There is a left adrenal nodule measuring up to 2.4 cm redemonstrated. This appears similar to the recent study of 07/31/2021 but increased in size compared to the 02/24/2016 study on which it measured 1.8 cm. Attenuation values on the 02/24/2016 study were compatible with a lipid rich adenoma. Kidneys and Ureters: No hydronephrosis. Stomach and Bowel: Stomach and small bowel loops are normal in caliber and wall thickness. No evidence of appendicitis. There is increased segmental colonic wall thickening within the sigmoid colon with increased extensive pericolonic fat stranding and a small amount of free fluid. In addition, there is a loculated collection anterior to the rectum containing fluid and gas measuring approximately 3.5 x 2.5 x 3.5 cm. There is an adjacent gas containing collection tracking along the sigmoid colon. There is also a loculated left pericolic collection measuring up to 3.7 x 2.2 x 2.0 cm. More anteriorly within the right hemipelvis, there is also a smaller collection measuring approximately 3.5 x 1.9 x 1.3 cm in transverse dimension. Peritoneum: A small amount of free fluid is demonstrated in the pelvis as well as a few small pericolonic foci of free air. Ventral Wall: No hernia. Abdominal Nodes: No retroperitoneal or mesenteric adenopathy by size criteria. Vessels: Aorta and inferior vena cava are normal in size. PELVIS: Pelvic Organs: Unremarkable. Bladder: Normal wall thickness. Pelvic Nodes: No enlarged lymph nodes. Miscellaneous: There is a small fat-containing left inguinal hernia. Bones: Visualized osseous structures demonstrate no suspicious focal lesions. IMPRESSION: 1. Sequelae of perforated sigmoid diverticulitis redemonstrated with new loculated peripherally enhancing collections in the pelvis consistent with abscesses. 2. New left lower lobe consolidation suggestive of pneumonia or aspiration. Findings discussed with Dr. Cates on 08/03/2021 at 6:10 p.m.. 3. Left adrenal nodule redemonstrated with attenuation values on the prior noncontrast CT compatible with a lipid rich adenoma. This demonstrates slight increase in size over time. Dictated by: Chris Bedolla M.D. on 08/03/2021 at 18:08 Approved by: Chris Bedolla M.D. on 08/03/2021 at 18:24
[2021-08-03 17:20] LABS: Procalcitonin 0.18 ng/mL (<0.5)
[2021-08-03 18:19] LABS: COVID19 -Nasal RAPID Negative (Negative)
[2021-08-03] MEDS: CIPROFLOXACIN 400 MG/200 ML PIGGYBACK 200 MG IV (18:27)
--- NOTE | 2021-08-03 18:30 | ED_ITS ---
HPI - General Adult General Chief complaint: Abdominal Pain Stated complaint: pain,nausea,had diverticulitis/ruptured intestine Time Seen by Provider: 08/03/21 17:08 Source: patient Mode of arrival: Ambulatory Limitations: no limitations History of Present Illness HPI narrative: Patient is a 55-year-old female. I evaluated her here in the emergency department a couple days ago for abdominal pain and admitted her to the hospital for perforated diverticulitis. Per the inpatient notes apparently she left what appears to be against medical advice less than 24 hours after being admitted to the hospital. She was discharged home on Flagyl and Levaquin by mouth. She states that ?my children were making me anxious ?has the reason she left the hospital. She states that the day after she left she actually felt fairly well however with the past 12-24 hours she has had increasing abdominal discomfort and nausea. No fevers. Change in bowel habits. No urinary symptoms. The discomfort that she is having is similar to her prior visit. Related Data Home Medications Medication Instructions Recorded Confirmed dextroamphetamine-amphetamine 10 30 mg PO DAILY #0 02/24/16 08/03/21 mg tablet (Adderall) levothyroxine 88 mcg capsule 100 mcg PO DAILY 01/25/20 08/03/21 Previous Rx's Medication Instructions Recorded levofloxacin 500 mg tablet 500 mg PO Q24H #10 tab 08/01/21 metronidazole 375 mg capsule 500 mg PO Q6H 10 Days #54 cap 08/01/21 (Flagyl) Allergies Allergy/AdvReac Type Severity Reaction Status Date / Time codeine Allergy Intermediate Rash Verified 08/03/21 16:06 Penicillins Allergy Intermediate Rash Verified 08/03/21 16:06 Review of Systems Review of Systems ROS Unobtainable: All systems reviewed & are unremarkable except as noted in HPI and below Gastrointestinal Gastrointestinal: Reports as per HPI and Reports system reviewed and no additional complaints, except as documented Genitourinary Genitourinary: Reports system reviewed and no additional complaints, except as documented and Reports as per HPI Hematologic/Lymphatic On Anticoagulants: No Patient History Medical History Easy bruisability Gallstones Hypothyroid Tobacco dependence Surgical History Hx of appendectomy Hx of cholecystectomy Hx of tonsillectomy (1981) Hx of tubal ligation (1989) Family History Mother Cancer Eosinophilia Father Old age Social History marital status: unknown household members: significant other and friend(s) occupational status: employed Smoking Status: Current every day smoker alcohol intake: current substance use type: does not use Smoking Status: Current every day smoker alcohol intake frequency: a few times a week Substance Use Type: does not use Exam Initial Vital Signs Initial Vital Signs: Vital Signs Temperature 99.0 F 08/03/21 16:10 Pulse Rate 113 H 08/03/21 16:10 Respiratory Rate 22 08/03/21 16:10 Blood Pressure 118/64 08/03/21 16:10 Pulse Oximetry 94 08/03/21 16:10 Const General: cooperative and No ill appearing HENMT Head: normal to inspection and normocephalic Eyes General: appearance normal, both eyes and all related structures Chest Chest: normal inspection of the chest Resp Effort & Inspection: normal respiratory effort Auscultation: clear to auscultation bilaterally Cardio Rate: tachycardic Rhythm: regular rhythm GI Inspection: non-distended Palpation: soft, guarding and tender Back/Spine/Pelvis Back: No CVA tenderness Skin General: no rashes or lesions noted Neuro General: patient alert, patient awake, patient oriented x3 and moves all extremities Cognition: normal cognition Speech: speech normal Extrem General: normal to inspection and capillary refill normal Psych Appearance: grossly normal and well kempt Scores GCS Jennifer coma scale eye opening: Spontaneous Jennifer coma scale verbal response: Orientated Jennifer coma scale motor response: Obey commands Jennifer coma scale total score: 15 Course Orders Ordered: ED Orders 08/03/21 16:32 XR chest 1V Stat RT Consult Eval and Treat NOW 08/03/21 16:58 Blood Culture Stat 08/03/21 17:09 CT abdomen pelvis w con Stat 08/03/21 18:35 Consult to General Surgery Stat Acetaminophen (Acetaminophen 325 Mg Tablet) 650 mg PO Q6HR PRN PRN Reason: fever and mild pain Last Admin: 08/04/21 00:43 Dose: 650 mg Documented by: JUNIOR Al Hydrox/Mg Hydrox/Simethicone (Mag Hydrox/Alum/Simeth 30 Ml Udc) 30 ml PO Q6HR PRN PRN Reason: Dyspepsia Gabapentin (Gabapentin 100 Mg Capsule) 100 mg PO Q8HR [facility] Last Admin: 08/03/21 21:19 Dose: 100 mg Documented by: JUNIOR Hydromorphone HCl (Hydromorphone 0.5 Mg Inj) 0.5 mg IV Q4H PRN PRN Reason: Breakthrough pain only (8-10) Last Admin: 08/04/21 00:43 Dose: 0.5 mg Documented by: Admin: 08/03/21 21:23 Dose: 0.5 mg Documented by: JUNIOR Sodium Chloride (Normal Saline 0.9%) 1,000 mls @ 100 mls/hr IV CONT [facility] Last Admin: 08/03/21 21:19 Dose: 100 mls/hr Documented by: JUNIOR Metronidazole (Flagyl) 500 mg in 100 mls @ 100 mls/hr IV Q8H [facility] Stop: 08/08/21 01:59 Ciprofloxacin (Cipro) 400 mg in 200 mls @ 200 mls/hr IV Q12H [facility] Stop: 08/08/21 17:59 Levothyroxine Sodium (Levothyroxine 100 Mcg Tablet) 100 mcg PO 0600 [facility] Naloxone HCl (Naloxone 0.4 Mg/Ml Vial) 0.2 mg IV Q2MIN PRN PRN Reason: Opiate Reversal Nicotine (Nicotine 21 Mg Patch) 21 mg TOP DAILY [facility] Last Admin: 08/03/21 20:37 Dose: 21 mg Documented by: JUNIOR Dextroamphetamine- Amphetamine [ Adderall] 10 Mg Tablet) 30 mg PO DAILY [facility] Ondansetron HCl (Ondansetron 4 Mg/2 Ml Inj) 4 mg IV Q4HR PRN PRN Reason: Nausea And Vomiting Tramadol HCl (Tramadol 50 Mg Tablet) 50 mg PO Q4H PRN PRN Reason: Pain, Moderate (4-6) Last Admin: 08/03/21 20:36 Dose: 50 mg Documented by: JUNIOR Discontinued Medications Sodium Chloride (Normal Saline 0.9%) 1,000 mls @ 1,000 mls/hr IV BOLUS ONE Stop: 08/03/21 17:31 Last Infusion: 08/03/21 19:05 Dose: 0 mls/hr Documented by: Admin: 08/03/21 16:57 Dose: 1,000 mls/hr Documented by: CALVIN Ciprofloxacin (Cipro) 400 mg in 200 mls @ 200 mls/hr IV NOW ONE Stop: 08/03/21 19:05 Last Infusion: 08/03/21 19:05 Dose: 0 mls/hr Documented by: Admin: 08/03/21 18:27 Dose: 200 mls/hr Documented by: CALVIN Metronidazole (Flagyl) 500 mg in 100 mls @ 100 mls/hr IV NOW ONE Stop: 08/03/21 19:05 Last Admin: 08/03/21 20:30 Dose: 100 mls/hr Documented by: JUNIOR Sodium Chloride (Normal Saline 0.9%) 500 mls @ 1,500 mls/hr IV BOLUS ONE Stop: 08/03/21 20:08 Last Admin: 08/03/21 20:34 Dose: 1,500 mls/hr Documented by: JUNIOR Morphine Sulfate (Morphine 4 Mg/Ml Inj) 4 mg IV NOW ONE Stop: 08/03/21 18:41 Last Admin: 08/03/21 18:45 Dose: 4 mg Documented by: CALVIN Ondansetron HCl (Ondansetron 4 Mg/2 Ml Inj) 4 mg IV NOW ONE Stop: 08/03/21 18:41 Last Admin: 08/03/21 18:45 Dose: 4 mg Documented by: CALVIN Vital Signs Vital signs: Vital Signs - 8 hr 08/03/21 17:30 08/03/21 17:48 08/03/21 18:00 Pulse Rate 96 H 91 H 90 Respiratory Rate Blood Pressure 119/63 127/59 L Pulse Oximetry 99 91 94 08/03/21 18:30 Pulse Rate 102 H Respiratory Rate 34 H Blood Pressure Pulse Oximetry 94 Medical Decision Making Medical Records Medical records reviewed: Yes I reviewed the patient's medical records. Lab Data Lab results reviewed: Yes I reviewed the patient's lab results. Result diagrams: 08/03/21 16:20 08/03/21 16:20 Labs: Lab Results 08/03/21 08/03/21 08/03/21 Range/Units 16:20 16:20 16:20 WBC 17.7 H (4.5-11.0) X10^3/uL RBC 4.34 (4.0-5.2) X10^6/uL Hgb 12.9 (12.0-16.0) g/dL Hct 38.6 (36-46) % MCV 88.9 (80-100) fL MCH 29.7 (26-34) PG MCHC 33.4 (30-36) % RDW 13.8 (11.6-14.8) % Plt Count 289 (150-400) X10^3/uL Neut % (Auto) 84.8 H (50-75) % Lymph % (Auto) 8.3 L (25-40) % Hooker % (Auto) 6.0 (3-14) % Eos % (Auto) 0.4 L (2-4) % Baso % (Auto) 0.5 (0-2) % Neut # (Auto) 07907 H (6402-6101) /uL Lymph # (Auto) 1500 (2692-1913) /uL Hooker # (Auto) 1100 H (0-900) /uL Eos # (Auto) 100 (0-450) /uL Baso # (Auto) 100 (0-100) /uL PT 14.8 H (10.1-12.7) SECONDS INR 1.3 (0.9-1.3) APTT 35 (26.4-36.2) SECONDS Sodium 134 L (137-145) mmol/L Potassium 3.4 (3.4-5.1) mmol/L Chloride 105 (98-107) mmol/L Carbon Dioxide 24 (22-32) mmol/L BUN 10 (7-17) mg/dL Creatinine 0.56 (0.52-1.04) mg/dL Estimated GFR > 60.0 (>60) mL/min BUN/Creatinine Ratio 17.9 (6-22) Glucose 103 H (70-100) mg/dL Lactate (0.7-2.1) mmol/L Calcium 8.7 (8.4-10.2) mg/dL Magnesium (1.6-2.3) mg/dL Total Bilirubin 0.6 (0.2-1.3) mg/dL AST 24 (14-36) IU/L ALT 26 (<35) IU/L Alkaline Phosphatase 120 (38-126) U/L Total Protein 6.9 (6.3-8.2) g/dL Albumin 3.7 (3.5-5.0) g/dL Globulin 3.2 (1.7-4.1) g/dL Albumin/Globulin Ratio 1.2 (1.0-2.8) Lipase 14 L D (23-300) U/L Procalcitonin 0.18 (<0.5) ng/mL SARS-CoV-2 (PCR) (Negative) 08/03/21 08/03/21 08/03/21 Range/Units 16:20 16:20 16:24 WBC (4.5-11.0) X10^3/uL RBC (4.0-5.2) X10^6/uL Hgb (12.0-16.0) g/dL Hct (36-46) % MCV (80-100) fL MCH (26-34) PG MCHC (30-36) % RDW (11.6-14.8) % Plt Count (150-400) X10^3/uL Neut % (Auto) (50-75) % Lymph % (Auto) (25-40) % Hooker % (Auto) (3-14) % Eos % (Auto) (2-4) % Baso % (Auto) (0-2) % Neut # (Auto) (7305-6831) /uL Lymph # (Auto) (5556-3606) /uL Hooker # (Auto) (0-900) /uL Eos # (Auto) (0-450) /uL Baso # (Auto) (0-100) /uL PT (10.1-12.7) SECONDS INR (0.9-1.3) APTT (26.4-36.2) SECONDS Sodium (137-145) mmol/L Potassium (3.4-5.1) mmol/L Chloride (98-107) mmol/L Carbon Dioxide (22-32) mmol/L BUN (7-17) mg/dL Creatinine (0.52-1.04) mg/dL Estimated GFR (>60) mL/min BUN/Creatinine Ratio (6-22) Glucose (70-100) mg/dL Lactate 0.6 L (0.7-2.1) mmol/L Calcium (8.4-10.2) mg/dL Magnesium 1.9 (1.6-2.3) mg/dL Total Bilirubin (0.2-1.3) mg/dL AST (14-36) IU/L ALT (<35) IU/L Alkaline Phosphatase (38-126) U/L Total Protein (6.3-8.2) g/dL Albumin (3.5-5.0) g/dL Globulin (1.7-4.1) g/dL Albumin/Globulin Ratio (1.0-2.8) Lipase (23-300) U/L Procalcitonin (<0.5) ng/mL SARS-CoV-2 (PCR) Negative (Negative) Imaging Data Chest x-ray: Radiologist's Impression: [address] [address] XRay Report Signed Patient: Marci Motta MR#: [id number] : 1965 Acct:[id number] Age/Sex: 55 / F Date of Service: 08/03/21 Loc: ED Accession Number: [id number] ?? Procedure: XR chest 1V Ordering Provider: Jina Cates D.O. PROCEDURE:? XR CHEST 1V ? INDICATIONS:? suspected sepsis ? TECHNIQUE:? One view of the chest was acquired.? ? COMPARISON:? [facility], CT, CT ABDOMEN PELVIS W CON, 07/31/2021, 21:42.? [facility], CT, CT ABDOMEN PELVIS W CON, 08/03/2021, 17:16. ? FINDINGS:? ? Surgical changes and devices:? None.? ? Lungs and pleura:? There are confluent left basilar opacities consistent with consolidation.? Linear right basilar opacities may also represent consolidation, versus atelectasis.? No pleural effusions or pneumothorax.? ? Mediastinum:? Mediastinal contours appear normal.? Heart size is normal.? ? Bones and chest wall:? No suspicious bony lesions.? Overlying soft tissues appear unremarkable.? ? IMPRESSION:? ? 1. Left lower lobe consolidation suspicious for pneumonia.? Linear right basilar atelectasis or consolidation also demonstrated.? ? Dictated by: Chris Bedolla M.D. on 08/03/2021 at 18:06 ? ? Approved by: Chris Bedolla M.D. on 08/03/2021 at 18:07?? CT scan - abdomen/pelvis: Radiologist's Impression: [address] [address] [address] Scan Report Signed Patient: Marci Motta MR#: [id number] : 1965 Acct:[id number] Age/Sex: 55 / F Date of Service: 08/03/21 Loc: ED Accession Number: [id number] ?? Procedure: CT abdomen pelvis w con Ordering Provider: Jina Cates D.O. PROCEDURE:? CT ABDOMEN PELVIS W CON ? INDICATIONS:? recent perforated diverticulitis, worsening pain ? TECHNIQUE:? After the administration of oral and IV contrast, axial sections were acquired from the lung bases to the pubic symphysis.? Coronal and sagittal reformats were performed.? For radiation dose reduction, the following was used:? automated exposure control, adjustment of mA and/or kV according to patient size. ? COMPARISON:? [facility], CT, KIDNEY/ URETER/BLADDER, 02/24/2016, 3:25.? [facility], CT, CT ABDOMEN PELVIS W CON, 07/31/2021, 21:42. ? FINDINGS:? Image quality:? Excellent.? ? Lung bases:? There is new posterior consolidation within the left lower lobe as well as linear opacities in the right lower lobe posteriorly likely representing atelectasis. Heart:? Heart is normal in size. ? ? ABDOMEN: Liver:? No mass lesion. Gallbladder:? Surgically absent. Biliary ducts:? No biliary ductal dilatation.? ? Pancreas:? Unremarkable.? ? Spleen:? The spleen is borderline enlarged, measuring up to 13.1 cm. Multiple punctate calcifications are demonstrated throughout the spleen consistent with sequelae of old granulomatous disease. Adrenal Glands:? There is a left adrenal nodule measuring up to 2.4 cm redemonstrated.? This appears similar to the recent study of 07/31/2021 but increased in size compared to the 02/24/2016 study on which it measured 1.8 cm.? Attenuation values on the 02/24/2016 study were compatible with a lipid rich adenoma.? Kidneys and Ureters:? No hydronephrosis.? ? ? Stomach and Bowel:? Stomach and small bowel loops are normal in caliber and wall thickness.? No evidence of appendicitis.? There is increased segmental colonic wall thickening within the sigmoid colon with increased extensive pericolonic fat st randing and a small amount of free fluid.? In addition, there is a loculated collection anterior to the rectum containing fluid and gas measuring approximately 3.5 x 2.5 x 3.5 cm.? There is an adjacent gas containing collection tracking along the sigmoid colon.? There is also a loculated left pericolic collection measuring up to 3.7 x 2.2 x 2.0 cm.? More anteriorly within the right hemipelvis, there is also a smaller collection measuring approximately 3.5 x 1.9 x 1.3 cm in transverse dimension. Peritoneum:? A small amount of free fluid is demonstrated in the pelvis as well as a few small pericolonic foci of free air. ? Ventral Wall: ? No hernia.? Abdominal Nodes:? No retroperitoneal or mesenteric adenopathy by size criteria.? Vessels:? Aorta and inferior vena cava are normal in size.? ? PELVIS: Pelvic Organs:? Unremarkable.? ? Bladder:? Normal wall thickness.? ? Pelvic Nodes: No enlarged lymph nodes.? Miscellaneous:? There is a small fat-containing left inguinal hernia. ? Bones:? Visualized osseous structures demonstrate no suspicious focal lesions. ? IMPRESSION:? ? 1. Sequelae of perforated sigmoid diverticulitis redemonstrated with new loculated peripherally enhancing collections in the pelvis consistent with abscesses. ? 2. New left lower lobe consolidation suggestive of pneumonia or aspiration. ? Findings discussed with Dr. Cates on 08/03/2021 at 6:10 p.m..? ? 3. Left adrenal nodule redemonstrated with attenuation values on the prior noncontrast CT compatible with a lipid rich adenoma.? This demonstrates slight increase in size over time. ? Dictated by: Chris Bedolla M.D. on 08/03/2021 at 18:08 ? ? Approved by: Chris Bedolla M.D. on 08/03/2021 at 18:24? [facility] Narrative Medical decision making narrative: CT scan today continues to show diverticulitis now with abscesses that according to Radiology are not amenable to percutaneous drainage. Patient was given Cipro and Flagyl. Was initially tachycardic upon arrival but this improved. Not hypotensive. Antibiotics ordered immediately after my initial evaluation. Blood cultures were obtained. 30 cc/kilogram of fluids not ordered based on the fact that she has a normal lactate, and not hypotensive. Discussed the case with Dr. White on-call for General surgery who asked patient be admitted to medicine service and he will follow along as a [employer] retailer sales consultant. I then discussed the case with Dr. Doyle on-call for Internal Medicine who will admit for further evaluation and treatment. I did discuss the findings of the CT scan with the patient. She expressed understanding agreement. She states that she will stay for treatment. Discharge Plan Departure Patient Disposition: Admitted As Inpatient Clinical Impression: Diverticulitis of colon with perforation Admit Date/Time: 08/03/21 18:40 Admit Provider: Fabrice Doyle
[2021-08-03] MEDS: ONDANSETRON 4 MG/2 ML INJ IV (18:45)
[2021-08-03] MEDS: MORPHINE 4 MG/ML INJ IV (18:45)
--- NOTE | 2021-08-03 19:38 | P.HP_ITS ---
History of Present Illness History of Present Illness Date Patient Seen: 08/03/21 Time Patient Seen: 19:57 Chief complaint: pain,nausea,had diverticulitis/ruptured intestine Narrative: Marci Motta is a 55-year-old female smoker with medical history of hypothyroidi sm, obesity, and ADD presented to the ED again for lower abdominal pain with increasing nausea without vomiting secondary to redemonstrated perforated diverticulitis of the descending and sigmoid colon, and with new and loculated peripheral enhancing abscess. Patient was previously admitted on 08/01/2021 for this, in reviewing the chart, only the H&P is present, a discharge packet is present but no discharge note on 08/01/2021. It is unclear if the patient left Against Medical Advice. Upon ad micheline patient currently has continued lower abdominal pain 3-4/10, no radiation, sharp and muscle spasms, nausea has resolved, and without vomiting. Patient does report that she had 4-5 liquid bowel movements yesterday. Patient denies fever, body aches, chills, chest pain, SOB, constipation, hematemesis, hematuria, melena, numbness, tingling, headache, upper respiratory symptoms, urinary symptoms, any other recent illness injury or trauma. Upon admit patient's fever I will temp 99?, BP 127/59, tachycardic HR 102, tachypneic RR 34, O2 saturation 94% on room air. Patient's WBC 17.7, neutrophil s 1500, mono# 1100, sodium 134, PT 14.8, INR stable 1.3, patient's lactate, procalcitonin and lipase are all WNL. Patient did meet SIRS criteria in ED, sofa score: 1. Patient's abdominal CT demonstrated sequelae of perforated sigmoid diverticulitis redemonstrated with new loculated peripherally enhancing collections in the pelvis. A new left lower lobe consolidation possible pneumonia, and a left adrenal nodule redemonstrated with attenuation seen on previous CT, slight increase in size. Patient's chest x-ray demonstrated a left lower lobe consolidation and linear right basilar atelectasis or consolidation.? Patient admitted for perforated diverticulitis with new peripheral enhancing abscess. Patient History Medical History Easy bruisability Gallstones Hypothyroid Tobacco dependence Surgical History Hx of appendectomy Hx of cholecystectomy Hx of tonsillectomy (1981) Hx of tubal ligation (1989) Family & Social History Family History Mother Cancer Eosinophilia Father Old age Social History: household members significant other,friend(s) Safety & Behavioral: Feels Safe in Current Yes Environment Suicidal Ideation Description None Suicide Plan Description No Plan Tobacco & Substance use: Tobacco type cigarettes Smoking Status Current every day smoker alcohol intake current alcohol intake frequency a few times a week Substance Use Type does not use Meds Home Medications and Allergies Home Medications Medication Instructions Recorded Confirmed Type dextroamphetamine-amphetamine 10 30 mg PO DAILY #0 02/24/16 08/03/21 History mg tablet (Adderall) levothyroxine 88 mcg capsule 100 mcg PO DAILY 01/25/20 08/03/21 History levofloxacin 500 mg tablet 500 mg PO Q24H #10 tab 08/01/21 08/03/21 Rx metronidazole 375 mg capsule 500 mg PO Q6H 10 Days #54 cap 08/01/21 08/03/21 Rx (Flagyl) Allergies Allergy/AdvReac Type Severity Reaction Status Date / Time codeine Allergy Intermediate Rash Verified 08/03/21 16:06 Penicillins Allergy Intermediate Rash Verified 08/03/21 16:06 Review of Systems Review of Systems Narrative: All 12 point systems reviewed with the patient and are negative except otherwise documented. Exam Vital Signs (past 8 hours): - 08/03/21 16:10 08/03/21 17:00 08/03/21 17:25 Temperature 99.0 F Pulse Rate 113 H 95 H Respiratory Rate 22 16 Blood Pressure 118/64 123/58 L 123/62 Pulse Oximetry 94 95 08/03/21 17:30 08/03/21 17:48 08/03/21 18:00 Temperature Pulse Rate 96 H 91 H 90 Respiratory Rate 18 22 Blood Pressure 119/63 127/59 L Pulse Oximetry 99 91 94 08/03/21 18:30 Temperature Pulse Rate 102 H Respiratory Rate 34 H Blood Pressure Pulse Oximetry 94 Oxygen Delivery Method Room Air Narrative Exam Narrative: General: Patient is a well-developed, well-nourished obese female, in no distress at this time. HEENT: Normocephalic, atraumatic, extraocular muscles intact, oral pharynx is clear and mucous membranes are moist. Neck is supple and symmetric, trachea is midline, no adenopathy, no thyroid enlargement, nontender, no masses palpated. Negative for JVD Chest: Normal AP diameter and contour without kyphoscoliosis, no nasal flaring, retractions, or tachypneic labored Lungs: Auscultation of all lung reyes noted scattered expiratory wheezing throughout. Cardio: regular rate and rhythm without murmur, rubs, or gallops, no carotid bruit, no cardiac pulsations present. Abdomen: Board like firmness to lower abd, mild tenderness with palpation, Bowel sounds are present in all 4 quadrants, no CVA tenderness. Musculoskeletal: Muscle strength and tone are equal within normal limits, no deformity, crepitus, effusions, cyanosis, clubbing or edema present. Full range of motion intact radial and pedal pulses are normal. Skin: Warm dry and intact without rashes, ulcerations or petechiae. Neuro: Alert and orientated x3, strength is +5/5 in all extremities, sensation to touch intact, no gross deficits noted of cranial nerves. Psych: Patient has a well-kept appearance, appropriate affect, mental status attitude thought context and judgment are appropriate for age. Objective Labs Result Diagrams: 08/03/21 16:20 08/03/21 16:20 Labs: Laboratory Results - last 24 hr 08/03/21 08/03/21 08/03/21 16:20 16:20 16:20 WBC 17.7 H RBC 4.34 Hgb 12.9 Hct 38.6 MCV 88.9 MCH 29.7 MCHC 33.4 RDW 13.8 Plt Count 289 Neut % (Auto) 84.8 H Lymph % (Auto) 8.3 L [place] % (Auto) 6.0 Eos % (Auto) 0.4 L Baso % (Auto) 0.5 Neut # (Auto) 08979 H Lymph # (Auto) 1500 [place] # (Auto) 1100 H Eos # (Auto) 100 Baso # (Auto) 100 PT 14.8 H INR 1.3 APTT 35 Sodium 134 L Potassium 3.4 Chloride 105 Carbon Dioxide 24 BUN 10 Creatinine 0.56 Estimated GFR > 60.0 BUN/Creatinine Ratio 17.9 Glucose 103 H Lactate Calcium 8.7 Total Bilirubin 0.6 AST 24 ALT 26 Alkaline Phosphatase 120 Total Protein 6.9 Albumin 3.7 Globulin 3.2 Albumin/Globulin Ratio 1.2 Lipase 14 L D Procalcitonin 0.18 SARS-CoV-2 (PCR) 08/03/21 08/03/21 16:20 16:24 WBC RBC Hgb Hct MCV MCH MCHC RDW Plt Count Neut % (Auto) Lymph % (Auto) [place] % (Auto) Eos % (Auto) Baso % (Auto) Neut # (Auto) Lymph # (Auto) [place] # (Auto) Eos # (Auto) Baso # (Auto) PT INR APTT Sodium Potassium Chloride Carbon Dioxide BUN Creatinine Estimated GFR BUN/Creatinine Ratio Glucose Lactate 0.6 L Calcium Total Bilirubin AST ALT Alkaline Phosphatase Total Protein Albumin Globulin Albumin/Globulin Ratio Lipase Procalcitonin SARS-CoV-2 (PCR) Negative Assessment & Plan Assessment & Plan narrative: Marci Motta is admitted to the inpatient service for evaluation for surgical management of a new demonstrated perforated diverticulitis of descending and sigmoid colon, with new loculated peripherally enhancing abscesses. 1. Perforated diverticulitis of descending and sigmoid colon, acute, with new loculated peripherally enhancing abscesses, acute, present on admission -incidental findings on CT: left lower lobe consolidation possible pneumonia, left adrenal nodule * General surgery: Dr. White graciously consulting in am. * WBC 17.7, neutrophils 1500, tachycardia, tachypnea, febrile, no hypotension: Met SIRS criteria in ED * Upon admit sofa score: 1-Not septic * NPO- Bowel rest with the exception of ice chips, sips w/meds * Pain control with toradol, gabepentin, & MS. * Sepsis fluid bolus rehydration 30 cc/kg, then NS at 100 cc/HR * Flagyl and Cipro-due to patient's allergies * Blood and urine cultures pending * C diff- due to diarrhea 2. Hypothyroidism, acquired, chronic, present on admission * Continue levothyroxine 3. ADHD, chronic, present on admission * Continue Adderall 4. Tobacco abuse, acute on chronic, present on admission -patient education regarding tobacco cessation -provide nicotine patch 5. Obesity as evidence by BMI of 33.7, acute on chronic, present on admission -dietary consult held at this time, due to acute crisis Code status: Full Surrogate decision maker: Flaco CALDERÓN COVID PCR: Negative COVID vaccination: J& J- no booster DVT/VTE prophylaxis: SCDs only at this time, medication held due to possible surgical intervention Disposition: Patient admitted to acute care, for surgical evaluation. I have utilized all available immediate resources to obtain, update, or review the patient's current medications. I confirmed that the patient's advanced care plan is present, Code status is documented and/or surrogate decision maker is listed in the patient's medical record. Time Spent With Patient Critical Care time: I spent a total of [] minutes of critical care time on this patient's care to day; this time is exclusive of procedural time. Quality VTE Deep Vein Thrombosis/Pulmonary Embolism Present on Admission: No
[2021-08-03 20:16] LABS: Magnesium 1.9 mg/dL (1.6-2.3)
[2021-08-03] MEDS: metroNIDAZOLE 500 MG/100 ML PIGGYBACK 100 MG IV (20:30)
[2021-08-03] MEDS: SODIUM CHLORIDE 0.9% 500 ML 1500 ML IV (20:34)
[2021-08-03] MEDS: TRAMADOL 50 MG TABLET PO (20:36)
[2021-08-03] MEDS: NICOTINE 21 MG PATCH TOP (20:37)
[2021-08-03] MEDS: GABAPENTIN 100 MG CAPSULE PO (21:19)
[2021-08-03] MEDS: SODIUM CHLORIDE 0.9% 1,000 ML 100 ML IV (21:19)
[2021-08-03] MEDS: HYDROMORPHONE 0.5 MG INJ IV (21:23)
[2021-08-04] VITALS (16 sets, daily range): BP systolic 101–147; BP diastolic 52–73; PULSE 84–102; RESP 18–22; TEMP 36.3–38.3; O2SAT 89–96
[2021-08-04] MEDS: HYDROMORPHONE 0.5 MG INJ IV ×3 (00:43→12:23)
[2021-08-04] MEDS: ACETAMINOPHEN 325 MG TABLET 650 MG PO ×3 (00:43→19:41)
[2021-08-04] MEDS: metroNIDAZOLE 500 MG/100 ML PIGGYBACK 100 MG IV ×3 (03:18→17:48)
[2021-08-04] MEDS: GABAPENTIN 100 MG CAPSULE PO ×3 (05:31→22:08)
[2021-08-04] MEDS: LEVOTHYROXINE 100 MCG TABLET PO (05:31)
[2021-08-04 06:06] LABS: Add Manual Diff / Slide Review NO; Basophils Absolute Auto 100 /uL (0-100); Basophils Percent Auto 0.9 % (0-2); Eosinophils Absolute Auto 100 /uL (0-450); Eosinophils Percent Auto 0.7 % (2-4); Hematocrit 35.7 % (36-46); Hemoglobin 12.2 g/dL (12.0-16.0); Lymphocytes Absolute Auto 1400 /uL (1100-4500); Lymphocytes Percent Auto 9.4 % (25-40); Mean Corpuscular Hemoglobin 29.9 PG (26-34); Monocytes Absolute Auto 900 /uL (0-900); Monocytes Percent Auto 5.8 % (3-14); Neutrophils Absolute Auto 12600 /uL (1500-7000); Neutrophils Percent Auto 83.2 % (50-75); Platelet Count 267 X10^3/uL (150-400); Red Blood Cell Count 4.06 X10^6/uL (4.0-5.2); Red Cell Distribution Width 14.3 % (11.6-14.8); White Blood Cell Count 15.2 X10^3/uL (4.5-11.0)
[2021-08-04 06:19] LABS: BUN Creatinine Ratio 13.6 (6-22); Blood Urea Nitrogen 9 mg/dL (7-17); Calcium 8.1 mg/dL (8.4-10.2); Carbon Dioxide 26 mmol/L (22-32); Chloride 107 mmol/L (98-107); Estimated Glomerular Filt Rate > 60.0 mL/min (>60); Glucose 90 mg/dL (70-100); HEMOLYSIS < 15 (0-50); Potassium 3.5 mmol/L (3.4-5.1); Sodium 136 mmol/L (137-145)
[2021-08-04 06:27] LABS: NT-proBNP (BNP-Adult 18+) 120 pg/mL (<125)
[2021-08-04] MEDS: NICOTINE 21 MG PATCH TOP (08:18)
[2021-08-04] MEDS: SODIUM CHLORIDE 0.9% 1,000 ML 100 ML IV ×2 (09:53→23:10)
[2021-08-04] MEDS: TRAMADOL 50 MG TABLET PO (09:57)
--- NOTE | 2021-08-04 11:25 | PM.CN ---
History of Present Illness Consult details Date Patient Seen: 08/04/21 Time Patient Seen: 11:26 Chief complaint: Abdominal pain Narrative: Marci Motta is a 55-year-old woman who was admitted 2-3 days ago with diverticulitis but she left prior to a surgical consult. She was discharged with oral antibiotics. She felt better for a day or 2 but then yesterday her pain increased significantly. She re-presented to the emergency department where CT showed progression of her diverticulitis to include 2 small abscesses. She has not had prior bouts of diverticulitis before. Meds Home Medications and Allergies Home Medications Medication Instructions Recorded Confirmed Type dextroamphetamine-amphetamine 10 30 mg PO DAILY #0 02/24/16 08/03/21 History mg tablet (Adderall) levothyroxine 88 mcg capsule 100 mcg PO DAILY 01/25/20 08/03/21 History levofloxacin 500 mg tablet 500 mg PO Q24H #10 tab 08/01/21 08/03/21 Rx metronidazole 375 mg capsule 500 mg PO Q6H 10 Days #54 cap 08/01/21 08/03/21 Rx (Flagyl) Allergies Allergy/AdvReac Type Severity Reaction Status Date / Time codeine Allergy Intermediate Rash Verified 08/03/21 16:06 Penicillins Allergy Intermediate Rash Verified 08/03/21 16:06 Exam Vital Signs (past 8 hours): - 08/04/21 04:03 08/04/21 05:52 08/04/21 08:26 Temperature 98.0 F 98.5 F Pulse Rate 88 92 H Respiratory Rate 18 22 Blood Pressure 118/73 119/62 Pulse Oximetry 96 96 91 08/04/21 09:07 08/04/21 09:08 Temperature Pulse Rate Respiratory Rate Blood Pressure Pulse Oximetry 89 L 94 Oxygen Delivery Method Nasal Cannula Oxygen Flow Rate 2 Narrative Exam Narrative: Obese Abdomen is soft, moderately tender in lower quadrants No peritoneal signs Objective Labs Result Diagrams: 08/04/21 05:52 08/04/21 05:52 Labs: Laboratory Results - last 24 hr 08/03/21 08/03/21 08/03/21 16:20 16:20 16:20 WBC 17.7 H RBC 4.34 Hgb 12.9 Hct 38.6 MCV 88.9 MCH 29.7 MCHC 33.4 RDW 13.8 Plt Count 289 Neut % (Auto) 84.8 H Lymph % (Auto) 8.3 L [place] % (Auto) 6.0 Eos % (Auto) 0.4 L Baso % (Auto) 0.5 Neut # (Auto) 36914 H Lymph # (Auto) 1500 [place] # (Auto) 1100 H Eos # (Auto) 100 Baso # (Auto) 100 PT 14.8 H INR 1.3 APTT 35 Sodium 134 L Potassium 3.4 Chloride 105 Carbon Dioxide 24 BUN 10 Creatinine 0.56 Estimated GFR > 60.0 BUN/Creatinine Ratio 17.9 Glucose 103 H Lactate Calcium 8.7 Magnesium Total Bilirubin 0.6 AST 24 ALT 26 Alkaline Phosphatase 120 NT-Pro-B Natriuret Pep Total Protein 6.9 Albumin 3.7 Globulin 3.2 Albumin/Globulin Ratio 1.2 Lipase 14 L D Procalcitonin 0.18 SARS-CoV-2 (PCR) 08/03/21 08/03/21 08/03/21 16:20 16:20 16:24 WBC RBC Hgb Hct MCV MCH MCHC RDW Plt Count Neut % (Auto) Lymph % (Auto) [place] % (Auto) Eos % (Auto) Baso % (Auto) Neut # (Auto) Lymph # (Auto) [place] # (Auto) Eos # (Auto) Baso # (Auto) PT INR APTT Sodium Potassium Chloride Carbon Dioxide BUN Creatinine Estimated GFR BUN/Creatinine Ratio Glucose Lactate 0.6 L Calcium Magnesium 1.9 Total Bilirubin AST ALT Alkaline Phosphatase NT-Pro-B Natriuret Pep Total Protein Albumin Globulin Albumin/Globulin Ratio Lipase Procalcitonin SARS-CoV-2 (PCR) Negative 08/04/21 08/04/21 05:52 05:52 WBC 15.2 H RBC 4.06 Hgb 12.2 Hct 35.7 L MCV 88.0 MCH 29.9 MCHC 34.0 RDW 14.3 Plt Count 267 Neut % (Auto) 83.2 H Lymph % (Auto) 9.4 L [place] % (Auto) 5.8 Eos % (Auto) 0.7 L Baso % (Auto) 0.9 Neut # (Auto) 39983 H Lymph # (Auto) 1400 [place] # (Auto) 900 Eos # (Auto) 100 Baso # (Auto) 100 PT INR APTT Sodium 136 L Potassium 3.5 Chloride 107 Carbon Dioxide 26 BUN 9 Creatinine 0.66 Estimated GFR > 60.0 BUN/Creatinine Ratio 13.6 Glucose 90 Lactate Calcium 8.1 L Magnesium Total Bilirubin AST ALT Alkaline Phosphatase NT-Pro-B Natriuret Pep 120 Total Protein Albumin Globulin Albumin/Globulin Ratio Lipase Procalcitonin SARS-CoV-2 (PCR) [facility] Medical History Easy bruisability Gallstones Hypothyroid Tobacco dependence Surgical History Hx of appendectomy Hx of cholecystectomy Hx of tonsillectomy (1981) Hx of tubal ligation (1989) Family History Mother Cancer Eosinophilia Father Old age Social History marital status: unknown household members: significant other and friend(s) occupational status: employed Tobacco & Substance Use Smoking Status: Current every day smoker alcohol intake: current substance use type: does not use Assessment & Plan Assessment and plan (1) Diverticulitis of colon with perforation: Status: Acute Plan Continue IV antibiotics and bowel rest. At some point she will need a repeat CT to reassess the abscesses. Time Spent With Patient Critical Care time: I spent a total of [] minutes of critical care time on this patient's care today; this time is exclusive of procedural time.
--- NOTE | 2021-08-04 11:46 | CM.DANOTE ---
DCP Assessment note: patient is a 55 yr old female who was admitted for perforated Diverticulitis. patient is a readmit after leaving believed AMA 08/01/21. Patient lives in [place] with her SO Flaco. CM met with patient at the bedside and explained role. Patient is A&O x4 during meeting. Patient stated her pain was a 6/10 but had just received pain medications prior to CM meeting. Patient states she is independent with all ADLs and drives at her baseline and lives in a single level home in [place]. Patients SO Flaco is her DPOA per the patient and states that he will be the one to transport her home at [place]. Currently Surgical consult pending. CM asked if the patient would consider HH or SNF if needed at dich[place] depending on what is needed with surgery? patient stated she is open to HH services if absolutly necessary but will no go to a SNF. I: [place] and self pay Plan: DC home with SO providing transport when medically stable VS home with HH if needed to be determined if surgery is needed. Marjan Acosta RNelectric installer Discharge Planning/Care Management CM Discharge Assessment Start: 08/04/21 11:11 Freq: Status: Active Protocol: Document 08/04/21 11:11 HS (Rec: 08/04/21 11:25 HS [id number]) Discharge Planning Assessment Assigned Electrical Logging Operator Marjan Acosta [employer]lectric installer DPOA/Assigned Designee Name Flaco Jacobs- Significant other Contact Information [phone] Advance Directives? No Advance Directives on File No History Provided By Patient,Medical Record Has Patient been admitted in last 30 Yes days? Comment DC on 08/01/21 - possibly AMA Prior Living Arrangements House Household Members significant other,friend(s) Type of transporation used prior to Drives own vehicle admit Independent with ADL's Yes Is patient alert and oriented? Yes Caregiver for Another No DME Already Rented / Owned FWW / Walker Comment Not sure what the DC needs there will be at this time - since patient has not had a surgery consult yet..... however patient is open to HH services but does not want SNF at DC if needed. Barriers to Discharge No Discharge Plan Home Referrals Initiated None needed Additional Comment no needs at this time If patient plan is home with home health No : Has signed face to face form been completed? Medicare Choice List Provided Yes Whiteboard Updated in Patient Room with Yes name and ext. # of Electrical Logging Operator Review Status In Process Next Review Type Continued Stay Review
[2021-08-04] MEDS: HYDROMORPHONE 1 MG INJ IV ×5 (13:02→22:11)
--- NOTE | 2021-08-04 15:20 | PM.PN.1 ---
Subjective Subjective Date Patient Seen: 08/04/21 Interval history: 55-year-old female who was admitted earlier in the week with acute diverticulitis but left Against Medical Advice after 1 day and developed recurrent severe abdominal pain. CT showed progression of descending and sigmoid diverticulitis to include 2 small abscesses. Patient reports persistent but not worse abdominal pain. No vomiting. Exam Vital Signs (past 8 hours): - 08/04/21 07:45 08/04/21 08:26 08/04/21 09:07 Temperature 98.5 F Pulse Rate 92 H Respiratory Rate 22 Blood Pressure 119/62 Pulse Oximetry 90 L 91 89 L 08/04/21 09:08 08/04/21 12:03 08/04/21 12:46 Temperature 98 F Pulse Rate 84 Respiratory Rate 20 Blood Pressure 101/52 L Pulse Oximetry 94 96 95 Oxygen Delivery Method Nasal Cannula Oxygen Flow Rate 2 Narrative Exam Narrative: General: Alert cooperative and in mild distress Lungs: Clear Heart: Regular rhythm Abdomen: Tender in lower mid to left Extremities: No edema Objective Labs Result Diagrams: 08/04/21 05:52 08/04/21 05:52 Labs: Laboratory Results - last 24 hr 08/03/21 08/03/21 08/03/21 16:20 16:20 16:20 WBC 17.7 H RBC 4.34 Hgb 12.9 Hct 38.6 MCV 88.9 MCH 29.7 MCHC 33.4 RDW 13.8 Plt Count 289 Neut % (Auto) 84.8 H Lymph % (Auto) 8.3 L [place] % (Auto) 6.0 Eos % (Auto) 0.4 L Baso % (Auto) 0.5 Neut # (Auto) 81076 H Lymph # (Auto) 1500 [place] # (Auto) 1100 H Eos # (Auto) 100 Baso # (Auto) 100 PT 14.8 H INR 1.3 APTT 35 Sodium 134 L Potassium 3.4 Chloride 105 Carbon Dioxide 24 BUN 10 Creatinine 0.56 Estimated GFR > 60.0 BUN/Creatinine Ratio 17.9 Glucose 103 H Lactate Calcium 8.7 Magnesium Total Bilirubin 0.6 AST 24 ALT 26 Alkaline Phosphatase 120 NT-Pro-B Natriuret Pep Total Protein 6.9 Albumin 3.7 Globulin 3.2 Albumin/Globulin Ratio 1.2 Lipase 14 L D Procalcitonin 0.18 SARS-CoV-2 (PCR) 08/03/21 08/03/21 08/03/21 16:20 16:20 16:24 WBC RBC Hgb Hct MCV MCH MCHC RDW Plt Count Neut % (Auto) Lymph % (Auto) [place] % (Auto) Eos % (Auto) Baso % (Auto) Neut # (Auto) Lymph # (Auto) [place] # (Auto) Eos # (Auto) Baso # (Auto) PT INR APTT Sodium Potassium Chloride Carbon Dioxide BUN Creatinine Estimated GFR BUN/Creatinine Ratio Glucose Lactate 0.6 L Calcium Magnesium 1.9 Total Bilirubin AST ALT Alkaline Phosphatase NT-Pro-B Natriuret Pep Total Protein Albumin Globulin Albumin/Globulin Ratio Lipase Procalcitonin SARS-CoV-2 (PCR) Negative 08/04/21 08/04/21 05:52 05:52 WBC 15.2 H RBC 4.06 Hgb 12.2 Hct 35.7 L MCV 88.0 MCH 29.9 MCHC 34.0 RDW 14.3 Plt Count 267 Neut % (Auto) 83.2 H Lymph % (Auto) 9.4 L [place] % (Auto) 5.8 Eos % (Auto) 0.7 L Baso % (Auto) 0.9 Neut # (Auto) 64842 H Lymph # (Auto) 1400 [place] # (Auto) 900 Eos # (Auto) 100 Baso # (Auto) 100 PT INR APTT Sodium 136 L Potassium 3.5 Chloride 107 Carbon Dioxide 26 BUN 9 Creatinine 0.66 Estimated GFR > 60.0 BUN/Creatinine Ratio 13.6 Glucose 90 Lactate Calcium 8.1 L Magnesium Total Bilirubin AST ALT Alkaline Phosphatase NT-Pro-B Natriuret Pep 120 Total Protein Albumin Globulin Albumin/Globulin Ratio Lipase Procalcitonin SARS-CoV-2 (PCR) [facility] Medical History Easy bruisability Gallstones Hypothyroid Tobacco dependence Surgical History Hx of appendectomy Hx of cholecystectomy Hx of tonsillectomy (1981) Hx of tubal ligation (1989) Family History Mother Cancer Eosinophilia Father Old age Social History marital status: unknown household members: significant other and friend(s) occupational status: employed Smoking Status: Current every day smoker alcohol intake: current substance use type: does not use Assessment & Plan Assessment & Plan narrative: 1. Perforated diverticulitis of descending and sigmoid colon, acute, with new loculated peripherally enhancing abscesses, acute, present on admission -ncidental findings on CT: left lower lobe consolidation possible pneumonia, left adrenal nodule -appreciate surgical consult -Cipro and Flagyl IV antibiotics, bowel rest, IV fluids -IV pain management as needed -CBC in a.m. 2. Hypothyroidism -continue levothyroxine 3. ADHD -continue Adderall 4. Tobacco dependency -patient education regarding tobacco cessation -provide nicotine patch 5. Obesity, BMI 33.7 Time Spent With Patient Critical Care time: I spent a total of [] minutes of critical care time on this patient's care today; this time is exclusive of procedural time. Quality VTE Deep Vein Thrombosis/Pulmonary Embolism Present on Admission: No
[2021-08-04] MEDS: CIPROFLOXACIN 400 MG/200 ML PIGGYBACK 200 MG IV (18:49)
[2021-08-05] VITALS (17 sets, daily range): BP systolic 102–116; BP diastolic 51–71; PULSE 87–102; RESP 16–20; TEMP 36.6–38.2; O2SAT 91–94
[2021-08-05] MEDS: HYDROMORPHONE 1 MG INJ IV ×2 (01:48→05:21)
[2021-08-05] MEDS: metroNIDAZOLE 500 MG/100 ML PIGGYBACK 100 MG IV ×3 (01:52→18:37)
[2021-08-05] MEDS: LEVOTHYROXINE 100 MCG TABLET PO (05:19)
[2021-08-05] MEDS: GABAPENTIN 100 MG CAPSULE PO ×3 (05:19→22:39)
[2021-08-05] MEDS: CIPROFLOXACIN 400 MG/200 ML PIGGYBACK 200 MG IV ×2 (05:20→17:45)
[2021-08-05 06:08] LABS: Add Manual Diff / Slide Review NO; Basophils Absolute Auto 100 /uL (0-100); Basophils Percent Auto 0.3 % (0-2); Eosinophils Absolute Auto 0 /uL (0-450); Eosinophils Percent Auto 0.1 % (2-4); Hematocrit 36.1 % (36-46); Hemoglobin 11.9 g/dL (12.0-16.0); Lymphocytes Absolute Auto 1000 /uL (1100-4500); Lymphocytes Percent Auto 4.9 % (25-40); Mean Corpuscular HGB Conc 33.1 % (30-36); Mean Corpuscular Hemoglobin 29.2 PG (26-34); Mean Corpuscular Volume 88.1 fL (80-100); Monocytes Absolute Auto 1200 /uL (0-900); Monocytes Percent Auto 5.8 % (3-14); Neutrophils Absolute Auto 19000 /uL (1500-7000); Neutrophils Percent Auto 88.9 % (50-75); Platelet Count 321 X10^3/uL (150-400); Red Blood Cell Count 4.09 X10^6/uL (4.0-5.2); Red Cell Distribution Width 14.1 % (11.6-14.8); White Blood Cell Count 21.3 X10^3/uL (4.5-11.0)
[2021-08-05 06:15] LABS: BUN Creatinine Ratio 10.6 (6-22); Blood Urea Nitrogen 7 mg/dL (7-17); Calcium 8.2 mg/dL (8.4-10.2); Carbon Dioxide 25 mmol/L (22-32); Chloride 106 mmol/L (98-107); Estimated Glomerular Filt Rate > 60.0 mL/min (>60); Glucose 112 mg/dL (70-100); HEMOLYSIS < 15 (0-50); Potassium 3.4 mmol/L (3.4-5.1); Sodium 135 mmol/L (137-145)
[2021-08-05] MEDS: POTASSIUM CHLORIDE 20 MEQ TAB 40 MEQ PO (08:40)
[2021-08-05] MEDS: NICOTINE 21 MG PATCH TOP (08:41)
--- NOTE | 2021-08-05 10:09 | P.PN_ITS ---
Subjective Subjective Date Patient Seen: 08/05/21 Time Patient Seen: 10:09 Interval history: Marci had increased abdominal pain yesterday afternoon but it has improved since then. She has passed flatus and had a bowel movement. She is feeling much better now. Exam Vital Signs (past 8 hours): - 08/05/21 05:21 08/05/21 06:00 08/05/21 09:00 Temperature 99.9 F H 99.1 F Pulse Rate 100 H 97 H Respiratory Rate 20 18 Blood Pressure 109/70 102/51 L Pulse Oximetry 93 94 91 08/05/21 10:05 Temperature Pulse Rate Respiratory Rate Blood Pressure Pulse Oximetry 92 Oxygen Delivery Method Room Air Oxygen Flow Rate 0 Narrative Exam Narrative: Soft, no peritoneal findings Objective Labs Result Diagrams: 08/05/21 05:50 08/05/21 05:50 Labs: Laboratory Results - last 24 hr 08/05/21 08/05/21 05:50 05:50 WBC 21.3 H RBC 4.09 Hgb 11.9 L Hct 36.1 MCV 88.1 MCH 29.2 MCHC 33.1 RDW 14.1 Plt Count 321 Neut % (Auto) 88.9 H Lymph % (Auto) 4.9 L [place] % (Auto) 5.8 Eos % (Auto) 0.1 L Baso % (Auto) 0.3 Neut # (Auto) 25673 H Lymph # (Auto) 1000 L [place] # (Auto) 1200 H Eos # (Auto) 0 Baso # (Auto) 100 Sodium 135 L Potassium 3.4 Chloride 106 Carbon Dioxide 25 BUN 7 Creatinine 0.66 Estimated GFR > 60.0 BUN/Creatinine Ratio 10.6 Glucose 112 H Calcium 8.2 L PFSH Medical History Easy bruisability Gallstones Hypothyroid Tobacco dependence Surgical History Hx of appendectomy Hx of cholecystectomy Hx of tonsillectomy (1981) Hx of tubal ligation (1989) Family History Mother Cancer Eosinophilia Father Old age Social History marital status: unknown household members: significant other and friend(s) occupational status: employed Smoking Status: Current every day smoker alcohol intake: current substance use type: does not use Assessment & Plan Assessment and plan (1) Diverticulitis of colon with perforation: Status: Acute Plan Clear liquid diet Continue IV antibiotics Time Spent With Patient Critical Care time: I spent a total of [] minutes of critical care time on this patient's care today; this time is exclusive of procedural time. Quality VTE Deep Vein Thrombosis/Pulmonary Embolism Present on Admission: No
[2021-08-05] MEDS: HYDROMORPHONE 0.5 MG INJ IV (11:03)
[2021-08-05] MEDS: ENOXAPARIN 40 MG/0.4 ML SYRINGE SUBCUT (11:03)
[2021-08-05] MEDS: ONDANSETRON 4 MG/2 ML INJ IV (11:11)
--- NOTE | 2021-08-05 12:49 | P.PN_ITS ---
Subjective Subjective Date Patient Seen: 08/05/21 Interval history: 55-year-old female who was admitted earlier in the week with acute diverticulitis but left Against Medical Advice after 1 day and developed recurrent severe abdominal pain.? CT showed progression of descending and sigmoid diverticulitis to include 2 small abscesses. A.m. labs show spike in WBC as well as patient had low-grade temp. However, she is feeling a lot better with reduce abdominal pain and had BM. Would like to eat. Exam Vital Signs (past 8 hours): - 08/05/21 05:21 08/05/21 06:00 08/05/21 09:00 Temperature 99.9 F H 99.1 F Pulse Rate 100 H 97 H Respiratory Rate 20 18 Blood Pressure 109/70 102/51 L Pulse Oximetry 93 94 91 08/05/21 10:00 08/05/21 10:05 08/05/21 10:22 Temperature Pulse Rate Respiratory Rate Blood Pressure Pulse Oximetry 94 92 92 Oxygen Delivery Method Room Air Oxygen Flow Rate 0 Narrative Exam Narrative: General: Alert, NAD Lungs: Clear Heart: Regular Abdomen: Mild lower quadrant tenderness Extremities: No edema Neurological: Normal affect and speech Objective Labs Result Diagrams: 08/05/21 05:50 08/05/21 05:50 Labs: Laboratory Results - last 24 hr 08/05/21 08/05/21 05:50 05:50 WBC 21.3 H RBC 4.09 Hgb 11.9 L Hct 36.1 MCV 88.1 MCH 29.2 MCHC 33.1 RDW 14.1 Plt Count 321 Neut % (Auto) 88.9 H Lymph % (Auto) 4.9 L [place] % (Auto) 5.8 Eos % (Auto) 0.1 L Baso % (Auto) 0.3 Neut # (Auto) 90134 H Lymph # (Auto) 1000 L [place] # (Auto) 1200 H Eos # (Auto) 0 Baso # (Auto) 100 Sodium 135 L Potassium 3.4 Chloride 106 Carbon Dioxide 25 BUN 7 Creatinine 0.66 Estimated GFR > 60.0 BUN/Creatinine Ratio 10.6 Glucose 112 H Calcium 8.2 L PFSH Medical History Easy bruisability Gallstones Hypothyroid Tobacco dependence Surgical History Hx of appendectomy Hx of cholecystectomy Hx of tonsillectomy (1981) Hx of tubal ligation (1989) Family History Mother Cancer Eosinophilia Father Old age Social History marital status: unknown household members: significant other and friend(s) occupational status: employed Smoking Status: Current every day smoker alcohol intake: current substance use type: does not use Assessment & Plan Assessment & Plan narrative: 1. Perforated diverticulitis of descending and sigmoid colon, acute, with new loculated peripherally enhancing abscesses, acute, present on admission -incidental findings on CT: Bilateral infiltrate at bases consistent with atelectasis, left adrenal nodule increased in size verses February 2016 but compatible with lipid rich adenoma -appreciate surgical consult -continue Cipro and Flagyl IV antibiotics, bowel rest, IV fluids -clear liquid diet -hydrocodone as needed, IV med if needed -08/05 spike in WBC concerning although patient clinically is looking better, reviewed with surgery, will continue present treatment and reassess in a.m. -CBC, BMP in a.m. 2.? Hypothyroidism -continue levothyroxine 3.? ADHD -continue Adderall 4.? Tobacco dependency -patient education regarding tobacco cessation -provide nicotine patch 5.? Obesity, BMI 33.7 DVT prophylaxis: Enoxaparin Time Spent With Patient Critical Care time: I spent a total of [] minutes of critical care time on this patient's care today; this time is exclusive of procedural time. Quality VTE Deep Vein Thrombosis/Pulmonary Embolism Present on Admission: No
[2021-08-05] MEDS: HYDROCODONE/ACET 5/325 TABLET 1 TAB PO (14:26)
--- NOTE | 2021-08-05 17:00 | PC.NURSE ---
Day shift note: Patient awake, alert, and cooperative. States pain 2/10 well controlled with [place] PO. Ambulating in room, and around hallway. Continue on RA, afebrile this shift. Tolerating clear liquid diet. x 1 episode of dry heaving, no emesis. Abdomen soft, mildly tender, active bowels sounds. + BM, + flatus. Voiding without difficulty. Normotensive, on IVF. NSR Nicotine patch in place. Spouse Hadley at bedside providing supportive care. Calls appropriately for staff assist.
[2021-08-06] VITALS (9 sets, daily range): BP systolic 105–124; BP diastolic 52–64; PULSE 80–87; RESP 16–19; TEMP 36.2–37.7; O2SAT 92–95
[2021-08-06] MEDS: HYDROCODONE/ACET 5/325 TABLET 1 TAB PO ×3 (00:14→11:51)
[2021-08-06] MEDS: SODIUM CHLORIDE 0.9% 1,000 ML 100 ML IV (00:21)
[2021-08-06] MEDS: metroNIDAZOLE 500 MG/100 ML PIGGYBACK 100 MG IV (01:03)
[2021-08-06] MEDS: GABAPENTIN 100 MG CAPSULE PO (05:25)
[2021-08-06] MEDS: LEVOTHYROXINE 100 MCG TABLET PO (05:25)
[2021-08-06] MEDS: CIPROFLOXACIN 400 MG/200 ML PIGGYBACK 200 MG IV (05:25)
[2021-08-06 06:23] LABS: Add Manual Diff / Slide Review NO; Basophils Absolute Auto 0 /uL (0-100); Basophils Percent Auto 0.1 % (0-2); Eosinophils Absolute Auto 100 /uL (0-450); Eosinophils Percent Auto 0.5 % (2-4); Hematocrit 34.4 % (36-46); Hemoglobin 11.4 g/dL (12.0-16.0); Lymphocytes Absolute Auto 1400 /uL (1100-4500); Lymphocytes Percent Auto 8.5 % (25-40); Mean Corpuscular HGB Conc 33.2 % (30-36); Mean Corpuscular Hemoglobin 29.3 PG (26-34); Mean Corpuscular Volume 88.3 fL (80-100); Monocytes Absolute Auto 800 /uL (0-900); Monocytes Percent Auto 4.9 % (3-14); Neutrophils Absolute Auto 14000 /uL (1500-7000); Platelet Count 306 X10^3/uL (150-400); Red Cell Distribution Width 14.1 % (11.6-14.8); White Blood Cell Count 16.3 X10^3/uL (4.5-11.0)
--- NOTE | 2021-08-06 07:47 | P.PN_ITS ---
Subjective Subjective Date Patient Seen: 08/06/21 Time Patient Seen: 07:47 Interval history: Feels better today. Has tolerated liquid diet and has had bowel movements. Anxious to go home. Exam Vital Signs (past 8 hours): - 08/05/21 23:54 08/06/21 00:11 08/06/21 02:00 Temperature 99.9 F H Pulse Rate 87 Respiratory Rate 16 Blood Pressure 124/60 Pulse Oximetry 93 93 93 08/06/21 04:02 08/06/21 06:00 08/06/21 06:12 Temperature 99.5 F Pulse Rate 80 Respiratory Rate 16 Blood Pressure 119/64 Pulse Oximetry 94 93 93 Oxygen Delivery Method Room Air Oxygen Flow Rate 0 Narrative Exam Narrative: Abdomen is soft, moderately tender to palpation without peritoneal signs. Objective Labs Result Diagrams: 08/06/21 05:24 08/05/21 05:50 Labs: Laboratory Results - last 24 hr 08/06/21 05:24 WBC 16.3 H RBC 3.90 L Hgb 11.4 L Hct 34.4 L MCV 88.3 MCH 29.3 MCHC 33.2 RDW 14.1 Plt Count 306 Neut % (Auto) 86.0 H Lymph % (Auto) 8.5 L [place] % (Auto) 4.9 Eos % (Auto) 0.5 L Baso % (Auto) 0.1 Neut # (Auto) 36434 H Lymph # (Auto) 1400 [place] # (Auto) 800 Eos # (Auto) 100 Baso # (Auto) 0 PFSH Medical History Easy bruisability Gallstones Hypothyroid Tobacco dependence Surgical History Hx of appendectomy Hx of cholecystectomy Hx of tonsillectomy (1981) Hx of tubal ligation (1989) Family History Mother Cancer Eosinophilia Father Old age Social History marital status: unknown household members: significant other and friend(s) occupational status: employed Smoking Status: Current every day smoker alcohol intake: current substance use type: does not use Assessment & Plan Assessment and plan (1) Diverticulitis of colon with perforation: Status: Acute Plan Will try regular diet today and see if we can transition to oral antibiotics. Potentially she could go home later today or tomorrow. Time Spent With Patient Critical Care time: I spent a total of [] minutes of critical care time on this patient's care today; this time is exclusive of procedural time. Quality VTE Deep Vein Thrombosis/Pulmonary Embolism Present on Admission: No
[2021-08-06] MEDS: ENOXAPARIN 40 MG/0.4 ML SYRINGE SUBCUT (09:48)
[2021-08-06] MEDS: NICOTINE 21 MG PATCH TOP (09:48)
[2021-08-06] MEDS: metroNIDAZOLE 500 MG TABLET PO (09:48)
--- NOTE | 2021-08-06 10:43 | PC.NURSE ---
Assess- Patient is alert and oriented x3, she denies abdominal pain. General diet put in as order for patient and she tolerated all food well. She denies any nausea after eating. Nicotine patch placed on patients l.arm. She is resting comfortably. in room and helpful with care, patient also had a shower earlier.
--- NOTE | 2021-08-06 13:52 | P.DS_ITS ---
History of Present Illness History of Present Illness Date Patient Seen: 08/06/21 Time Patient Seen: 13:52 Chief complaint: Abdominal pain Narrative: Per Jenny Sparks, ADMISSIONS CONSULTANT-BC: Marci Motta is a 55-year-old female smoker with medical history of hy pothyroidism, obesity, and ADD presented to the ED again for lower abdominal pain with increasing nausea without vomiting secondary to redemonstrated perforated diverticulitis of the descending and sigmoid colon, and with new and loculated peripheral enhancing abscess. Patient was previously admitted on 08/01/2021 for this, in reviewing the chart,? only the H&P is present, a discharge packet is present but no discharge note on 08/01/2021.? It is unclear if the patient left Against Medical Advice.? Upon admit patient currently has continued lower abdominal pain 3-09/09, no radiation,? sharp and muscle spasms, nausea has resolved, and without vomiting.? Patient does report that she had 4-5 liquid bowel movements yesterday. Patient denies fever, body aches, chills, chest pain, SOB, constipation, hematemesis, hematuria, melena, numbness, tingling, headache, upper respiratory symptoms, urinary symptoms, any other recent illness injury or trauma. Upon admit patient's fever I will temp 99?, BP 127/59, tachycardic HR 102, tachypneic RR 34, O2 saturation 94% on room air.? Patient's WBC 17.7, neutrophils 1500, mono# 1100, sodium 134, PT 14.8, INR stable 1.3, patient's lactate, procalcitonin and lipase are all WNL.? Patient did meet SIRS criteria in ED, sofa score: 1.? Patient's abdominal CT demonstrated sequelae of perforated sigmoid diverticulitis redemonstrated with new loculated peripherally enhancing collections in the pelvis. A new left lower lobe consolidation possible pneumonia, and a left adrenal nodule redemonstrated with attenuation seen on previous CT, slight increase in size.? Patient's chest x-ray demonstrated a left lower lobe consolidation and linear right basilar at electasis or consolidation.? Patient admitted for perforated diverticulitis with new peripheral enhancing abscess. Discharge Providers Provider Date of admission: 08/03/21 18:40 Discharge Date: 08/06/21 Primary care physician: Clary Jiménez DO Consults: 08/03/21 18:35 Consult to General Surgery Stat Comment: Consulting Provider: Dariusz White Reason for consultation: diverticulitis Has provider been notified: Yes 08/03/21 19:51 Consult to Physician Routine Comment: Consulting Provider: Dariusz White Reason for consultation: Redemonstrated perforated diverticulitis Has provider been notified: Yes 08/04/21 18:24 Consult to Respiratory Therapy Evaluate & Treat Comment: Sats 89-91%, hx of smoking Physician Instructions: Evaluate and treat Discharge provider: Behzad Bourgeois DO Summary Hospital Course Discharge Diagnosis: 1. Perforated diverticulitis of descending and sigmoid colon, acute, with new loculated peripherally enhancing abscesses, acute, present on admission 2.? Hypothyroidism 3.? ADHD 4.? Tobacco dependency 5.? Obesity, BMI 33.7 Hospital Course: This is a 55-year-old female with a past medical history of ADHD, tobacco use, hypothyroidism, and obesity who was admitted with perforated diverticulitis and small abscess based on CT imaging. General surgery was consulted and followed along over the course of her admission, though no surgical interventions were needed. Her diet was advanced slowly and on the day of discharge she was tolerating a regular diet without significant abdominal pain. Her WBC count did peak at 21 but started declining the day of discharge. Given her penicillin allergy she was discharged on her previous antibiotics of levofloxacin and metronidazole. These were present with her in the hospital and she had 7 days left which should suffice. I do recommend follow-up with her primary care provider as an outpatient prior to her antibiotics ending for further management. This may include outpatient colonoscopy in a few months after inflammation has gone down, or potentially repeat imaging. No other medication changes are recommended at this time. Time Spent with Patient Time spent: Greater than 30 minutes Exam Vital Signs (past 8 hours): - 08/06/21 06:00 08/06/21 06:12 08/06/21 07:15 Temperature 99.5 F Pulse Rate 80 Respiratory Rate 16 Blood Pressure 119/64 Pulse Oximetry 93 93 94 08/06/21 08:29 08/06/21 09:32 08/06/21 12:45 Temperature 97.1 F L Pulse Rate 87 Respiratory Rate 19 Blood Pressure 105/52 L Pulse Oximetry 94 95 92 Oxygen Delivery Method Room Air Oxygen Flow Rate 0 Narrative Exam Narrative: General:? Patient is well developed and well nourished, in no distress at this time. Obese with BMI 34. HEENT:? Normocephalic, atraumatic, extraocular muscles intact, oral pharynx is clear and mucous membranes are moist. Neck: supple and symmetric, trachea is midline, no cervical adenopathy. Negative for JVD Chest:? Normal AP diameter and contour without kyphoscoliosis, no tachypnea, equal chest rise bilaterally. Lungs:? CTA b/l no wheezing rhonchi or rales. Cardio:?RRR no m/r/g. Abdomen: S NT ND. No CVA tenderness. Musculoskeletal:? Muscle strength and tone are equal within normal limits, no deformity. Extremities: No edema or joint effusions. No cyanosis or clubbing. Skin:? Pale,? Warm to touch,dry and intact without rashes, ulcerations or petechiae.? Neuro:? Alert and orientated x3,? sensation to touch intact in all extremities, no gross deficits noted of cranial nerves. Psych:? Patient has a well-kept appearance, appropriate affect, mental status attitude thought context and judgment are appropriate for age. Objective Labs Result Diagrams: 08/06/21 05:24 08/05/21 05:50 Labs: Laboratory Results - last 24 hr 08/06/21 05:24 WBC 16.3 H RBC 3.90 L Hgb 11.4 L Hct 34.4 L MCV 88.3 MCH 29.3 MCHC 33.2 RDW 14.1 Plt Count 306 Neut % (Auto) 86.0 H Lymph % (Auto) 8.5 L [place] % (Auto) 4.9 Eos % (Auto) 0.5 L Baso % (Auto) 0.1 Neut # (Auto) 28979 H Lymph # (Auto) 1400 [place] # (Auto) 800 Eos # (Auto) 100 Baso # (Auto) 0 PFSH Medical History Easy bruisability Gallstones Hypothyroid Tobacco dependence Surgical History Hx of appendectomy Hx of cholecystectomy Hx of tonsillectomy (1981) Hx of tubal ligation (1989) Family History Mother Cancer Eosinophilia Father Old age Social History marital status: unknown household members: significant other and friend(s) occupational status: employed Smoking Status: Current every day smoker alcohol intake: current substance use type: does not use Discharge Plan Discharge Plan Patient Disposition: Home Provider Discharge Comment: You were admitted to the hospital with diverticulitis, improved with antibiotic therapy. Please follow up with PCP for further management. Continue to finish your antibiotics at home ( you have 7 days left which is adequate for treatment.) Discharge orders & Medications Prescriptions: Continued dextroamphetamine-amphetamine [Adderall] 10 MG tablet 30 mg PO DAILY Qty: 0 0RF levofloxacin 500 mg tablet 500 mg PO Q24H Qty: 10 0RF metronidazole [Flagyl] 375 mg capsule 500 mg PO Q6H 10 Days Qty: 54 0RF levothyroxine 88 mcg Capsule 100 mcg PO DAILY 0RF Follow up/Referrals: Clary Jiménez DO [Primary Care Provider] - Diet/Activity/Treatments Diet: Diet as Tolerated Activity: As tolerated Visit Report/Discharge Packet Instructions: DI for Diverticulitis Discharge Data Primary Care Provider: Clary Jiménez Quality VTE Deep Vein Thrombosis/Pulmonary Embolism Present on Admission: No
== END 2021-08-06 14:55 | disposition home or self-care (01) | DRG 392 ==
LOC: ED 18:36 → AC 18:40
PROVIDERS: Emergency Medicine; Nurse Practitioner Family; Admitting Provider Internal Medicine; Emergency Provider Emergency Medicine; PCP Family Medicine; Referring Provider Emergency Medicine; Visit Provider Internal Medicine
DX: K57.20 Diverticulitis of large intestine with perforation and abscess without bleeding (principal); E03.9 Hypothyroidism, unspecified; F90.9 Attention-deficit hyperactivity disorder, unspecified type; F17.210 Nicotine dependence, cigarettes, uncomplicated; Z20.822 Contact with and (suspected) exposure to COVID-19
CPT/HCPCS: 36415; 71045; 74177; 80048; 80053; 82962; 83605; 83690; 83735; 83880; 84145; 85025; 85610; 85730; 87040; 87086; 87635; 94760; 96361; 96365; 96375; 99231; 99232; 99284; C9803; J0744; J1170; J1650; J2270; J2405; Q9967

== ENCOUNTER 2023-05-26 07:13 | Emergency (ER) | payer BC, SELFPAY ==
[2021-08-03 19:07] VITALS: BMI 33.6
[2023-05-26 07:30] VITALS: BP 149/87; PULSE 88; RESP 19; TEMP 36.7; O2SAT 98; BMI 31.9
--- NOTE | 2023-05-26 07:36 | ED_ITS ---
HPI - Extremity Injury (Lower) General Chief Complaint: Back Pain/Injury Stated Complaint: rt side hip pain going down to legs Time Seen by Provider: 05/26/23 07:23 Source: patient Mode of arrival: Ambulatory History of Present Illness HPI Narrative: Patient is a 57-year-old female history hypothyroid ADHD presenting today with ongoing right hip pain and leg pain. She says it has been going on for about the last 2 days she thinks she cough or sneeze been hurting ever since. She laid around all yesterday only got worse. She went to the emergency department [facility] yesterday she was given Flexeril she says it does not help. She has no changes in bowel or bladder habits. No fever or chills. It starts in her right lumbar area radiating down her leg. She took 400 mg of ibuprofen without any relief. Related Data Home Medications Medication Instructions Recorded Confirmed dextroamphetamine-amphetamine 10 30 mg PO DAILY ##0 02/24/16 08/03/21 mg tablet (Adderall) levothyroxine 88 mcg capsule 100 mcg PO DAILY 01/25/20 08/03/21 Previous Rx's Medication Instructions Recorded levofloxacin 500 mg tablet 500 mg PO Q24H #10 tabs 08/01/21 diazepam 5 mg tablet (Valium) 5 mg PO Q12HR PRN muscle spasm #10 05/26/23 tabs hydrocodone 5 mg-acetaminophen 325 1 tab PO Q6H PRN pain #10 tabs 05/26/23 mg tablet Allergies Allergy/AdvReac Type Severity Reaction Status Date / Time codeine Allergy Intermediate Rash Verified 08/03/21 16:06 Penicillins Allergy Intermediate Rash Verified 08/03/21 16:06 Patient History Medical History Tobacco dependence Hypothyroid Gallstones Easy bruisability Surgical History Hx of cholecystectomy Hx of tonsillectomy (1981) Hx of appendectomy Hx of tubal ligation (1989) Family History Mother Cancer Eosinophilia Father Old age Social History marital status: unknown household members: significant other and friend(s) occupational status: employed Smoking Status: Current every day smoker alcohol intake: current substance use type: does not use Smoking Status: Current every day smoker alcohol intake frequency: a few times a week Substance Use Type: does not use Exam Initial Vital Signs Initial Vital Signs: Vital Signs Temperature 98.1 F 05/26/23 07:30 Pulse Rate 88 05/26/23 07:30 Respiratory Rate 19 05/26/23 07:30 Blood Pressure 149/87 H 05/26/23 07:30 Pulse Oximetry 98 05/26/23 07:30 Oxygen Delivery Method Room Air 05/26/23 07:30 GENERAL: Alert 57 year male appears uncomfortable CARDIOVASCULAR: peripheral pulses in tact, cap refill <2 sec RESPIRATORY: No respiratory distress, speaks in full sentences without difficulty BACK: No vertebral tenderness no step-offs tender to palpation in 1 particular spot lower lumbar. Lower extremity sensation in and equal EXTREMITIES: Normal range of motion, no clubbing or edema. Neurovascularly intact NEUROLOGICAL: Cranial nerves II through XII grossly intact. Normal gait and speech. SKIN: Warm, dry, no petechiae, no rashes or lesions. Course Orders Ordered: Discontinued Medications Hydrocodone Bitart/Acetaminophen (Hydrocodone/Acet 5/325 Tablet) 1 tab PO NOW ONE Stop: 05/26/23 07:34 Last Admin: 05/26/23 07:43 Dose: 1 tab Documented By: MELINDA Hydrocodone Bitart/Acetaminophen (Hydrocodone/Acet 5/325 Prepack) 1 bottle MISC DIRECTED ONE Stop: 05/26/23 07:34 Last Admin: 05/26/23 07:56 Dose: 1 bottle Documented By: MELINDA Ketorolac Tromethamine (Ketorolac 30 Mg/Ml Vial) 30 mg IM NOW ONE Stop: 05/26/23 07:34 Last Admin: 05/26/23 07:43 Dose: 30 mg Documented By: MELINDA Vital Signs Vital signs: Vital Signs - 8 hr 05/26/23 07:30 Temperature 98.1 F Pulse Rate 88 Respiratory Rate 19 Blood Pressure 149/87 H Pulse Oximetry 98 Oxygen Delivery Method Room Air MDM - Extremity Injury (Lower) MDM Narrative Medical decision making narrative: Patient 57-year-old female presents today with right hip and leg pain. Symptoms are consistent with a sciatica. No signs or symptoms consistent with cauda equina. She had no fall or injury it is only been going on for a couple of days no need for imaging at this time. He is given Toradol and [place] here in the ED. It is [place] day pharmacies are not open she is also given a prepack Discharge Plan Departure Patient Disposition: Home Clinical Impression: Acute back pain with sciatica Instructions: DI for Back Pain With Sciatica Activity Restrictions/Additional Instructions: *You have been diagnosed with back pain with sciatica *What to do: At this time increase activity as tolerated recommend heating pad light movement light stretches no strenuous activity or heavy lifting more than 10-15 lb *Continue to take medications as directed-->[facility], will be open tomorrow Ibuprofen 600 mg every 6 hours if needed for [id number] pain (may take next dose at 4:00 p.m.) [place] 1 tablet every 6 hours if needed for severe pain Valium 5 mg every 12 hours if needed for muscle spasm(do not combine with Flexeril) Stop taking Flexeril *Follow up with your primary care provider in 2-3 days or call [phone] *Return to ER if you should have increasing pain numbness tingling weakness change in bowel or bladder habits or any new, worsening or concerning symptoms CONTROLLED SUBSTANCE DISCHARGE (Narcotoic/benzodiazepine/Flexeril/Phenergan) 1. You have been prescribed narcotic medications, it does have acetaminophen/Tylenol/paracetamol in it, DO NOT TAKE MORE THAN 4,00mg in 24 hours of Tylenol. TRAMADOL DOES NOT CONTAIN TYLENOL 2. Please understand that we cannot provide further refills of narcotics, benzodiazepines or controlled substances through the ED and her pain management will need to be through your provider. 3. While on these medications you cannot drive or operate heavy machinery. 4. You cannot sign legal documents or perform any duties such as this. 5. As long as you're taking opiate pain medications he should also be taking a stool softener such as Colace, Dulcolax, MiraLAX or prune juice, to help avoid constipation. Prescriptions: New hydrocodone-acetaminophen 5-325 mg tablet 1 tab PO Q6H PRN (Reason: pain) Qty: 10 0RF diazepam [Valium] 5 mg tablet 5 mg PO Q12HR PRN (Reason: muscle spasm) Qty: 10 0RF No Action dextroamphetamine-amphetamine [Adderall] 10 MG tablet 30 mg PO DAILY Qty: 0 levofloxacin 500 mg tablet 500 mg PO Q24H Qty: 10 0RF levothyroxine 88 mcg Capsule 100 mcg PO DAILY Referrals: Clary Jiménez DO [Primary Care Provider] - Stand Alone Forms: Patient Portal/API
[2023-05-26] MEDS: KETOROLAC 30 MG/ML VIAL IM (07:43)
[2023-05-26] MEDS: HYDROCODONE/ACET 5/325 TABLET 1 TAB PO (07:43)
[2023-05-26] MEDS: HYDROCODONE/ACET 5/325 PREPACK 1 BOTTLE MISC (07:56)
== END 2023-05-26 07:57 | disposition home or self-care (01) ==
PROVIDERS: Emergency Provider Emergency Medicine; PCP Family Medicine
DX: M54.41 Lumbago with sciatica, right side (principal)
CPT/HCPCS: 96372; 99283; J1885

== ENCOUNTER → 2023-06-03 10:00 | Outpatient (CLI) | payer BC, SELFPAY ==
[2021-08-03 19:07] VITALS: BMI 33.6
--- NOTE | 2023-06-03 | DI.RAD.S_ITS ---
PROCEDURE: XR HIP W PEL IF DONE AURELIA MIN 4V INDICATIONS: HIP PAIN TECHNIQUE: AP pelvis with lateral view(s) of the bilateral hip(s). COMPARISON: None. FINDINGS: Bones: No fractures or dislocations. Pelvic ring appears intact. No suspicious bony lesions. Mild bilateral hip joint degeneration. Soft tissues: The visualized bowel gas pattern is normal. No suspicious soft tissue calcifications. IMPRESSION: No acute bony abnormality. Mild bilateral hip joint degeneration. If symptoms persist with conservative management, consider cross-sectional imaging such as CT or MRI. Dictated by: Rola Nicholas M.D. on 06/03/2023 at 11:41 Approved by: Rola Nicholas M.D. on 06/03/2023 at 11:42
== END ==
LOC: RAD 10:02
PROVIDERS: PCP Nurse Practitioner Family; Referring Provider Chiropractor; Visit Provider Chiropractor
DX: M16.0 Bilateral primary osteoarthritis of hip (principal); M99.03 Segmental and somatic dysfunction of lumbar region; M99.04 Segmental and somatic dysfunction of sacral region; M25.551 Pain in right hip; M62.838 Other muscle spasm
CPT/HCPCS: 73522

== ENCOUNTER 2023-06-05 05:52 | Emergency (ER) | payer BC, SELFPAY ==
[2023-06-03 15:01] VITALS: BMI 33.6
[2023-06-05 05:58] VITALS: BP 146/73; PULSE 93; RESP 16; TEMP 36.4; O2SAT 100; BMI 31.9
--- NOTE | 2023-06-05 07:12 | ED_ITS ---
HPI - Extremity Injury (Lower) General Chief Complaint: Extremity Injury, Lower Stated Complaint: rt hip pain Time Seen by Provider: 06/05/23 06:20 Source: patient and family Mode of arrival: Family Vehicle History of Present Illness HPI Narrative: 57-year-old female who is here for evaluation of right hip pain. Several weeks ago she had an incident where she hurt her right lower back and right hip. She has been seen at multiple emergency departments to include this 1. Had x-rays earlier this week. Has a follow-up with orthopedic surgery. Has been using lidocaine patches without any help. Has also taking ibuprofen. Has Robaxin at home. She states she no longer has any pain medication. Has not been on steroids. Denies any urinary symptoms. Has a difficult time getting up and walking and standing and moving because of the pain. She also has an appointment for physical therapy but that is not for approximately 8 weeks. Related Data Home Medications Medication Instructions Recorded Confirmed dextroamphetamine-amphetamine 10 30 mg PO DAILY ##0 02/24/16 08/03/21 mg tablet (Adderall) levothyroxine 88 mcg capsule 100 mcg PO DAILY 01/25/20 08/03/21 Previous Rx's Medication Instructions Recorded levofloxacin 500 mg tablet 500 mg PO Q24H #10 tabs 08/01/21 diazepam 5 mg tablet (Valium) 5 mg PO Q12HR PRN muscle spasm #10 05/26/23 tabs hydrocodone 5 mg-acetaminophen 325 1 tab PO Q6H PRN pain #10 tabs 05/26/23 mg tablet hydrocodone 5 mg-acetaminophen 325 1 tab PO Q4-6H PRN pain #20 tabs 06/05/23 mg tablet methylprednisolone 4 mg tablets in See Rx Instructions PO .COMPLEX 06/05/23 a dose pack (Methylpred DP) #21 ea Allergies Allergy/AdvReac Type Severity Reaction Status Date / Time codeine Allergy Intermediate Rash Verified 06/05/23 06:11 Penicillins Allergy Intermediate Rash Verified 06/05/23 06:11 Review of Systems Constitutional Constitutional: Reports system reviewed and no additional complaints, except as documented Gastrointestinal Gastrointestinal: Reports system reviewed and no additional complaints, except as documented Genitourinary Genitourinary: Reports system reviewed and no additional complaints, except as documented Musculoskeletal Musculoskeletal: Reports system reviewed and no additional complaints, except as documented Integumentary/Breasts Skin/Breast: Reports system reviewed and no additional complaints, except as documented Patient History Medical History Tobacco dependence Hypothyroid Gallstones Easy bruisability Surgical History Hx of cholecystectomy Hx of tonsillectomy (1981) Hx of appendectomy Hx of tubal ligation (1989) Family History Mother Cancer Eosinophilia Father Old age Social History marital status: unknown household members: significant other and friend(s) occupational status: employed Smoking Status: Current every day smoker alcohol intake: current substance use type: does not use Smoking Status: Current every day smoker alcohol intake frequency: a few times a week Substance Use Type: does not use Exam Initial Vital Signs Initial Vital Signs: Vital Signs Temperature 97.6 F 06/05/23 05:58 Pulse Rate 93 H 06/05/23 05:58 Respiratory Rate 16 06/05/23 05:58 Blood Pressure 146/73 H 06/05/23 05:58 Pulse Oximetry 100 06/05/23 05:58 Oxygen Delivery Method Room Air 06/05/23 05:58 Const General: cooperative, comfortable and No ill appearing Back/Spine/Pelvis Other: Tenderness to palpation right paraspinal lumbar region over the SI joint. Skin General: no rashes or lesions noted Extrem Other: No gross deformities Course Orders Ordered: Discontinued Medications Hydromorphone HCl (Hydromorphone 1 Mg Inj) 1 mg IM NOW ONE Stop: 06/05/23 07:14 Vital Signs Vital signs: Vital Signs - 8 hr 06/05/23 05:58 Temperature 97.6 F Pulse Rate 93 H Respiratory Rate 16 Blood Pressure 146/73 H Pulse Oximetry 100 Oxygen Delivery Method Room Air MDM - Extremity Injury (Lower) MDM Narrative Medical decision making narrative: Patient has already had workup to include x-rays. She has been trying conservative measures at home to include lidocaine patches and anti- inflammatories without much improvement. There are no skin changes over the area. No red flag symptoms that would be concerning for cauda equina today. No indication for more advanced imaging. Sounds like she does have follow-up scheduled with physical therapy and also Orthopedic surgery however that will not be for several weeks. Will provide pain medication to try to get her through until this appointment. Will also provide a steroid pack. She was given return precautions. She expressed understanding and agreement. Discharge Plan Departure Patient Disposition: Home Clinical Impression: Low back pain radiating down leg Instructions: DI for Low Back Pain, Activity May Be Better Than Rest for Low Back Pain Recovery Activity Restrictions/Additional Instructions: It is important that you try to stay as active as possible. Keep your scheduled appointment that you have with the orthopedic surgeons coming up later this month. I prescribed a steroid pack and pain medication to use as directed. Contact your primary doctor for follow-up. Prescriptions: New hydrocodone-acetaminophen 5-325 mg tablet 1 tab PO Q4-6H PRN (Reason: pain) Qty: 20 0RF methylprednisolone [Methylpred DP] 4 mg tablets,dose pack See Rx Instructions .ROUTE .COMPLEX Qty: 21 0RF Rx Instructions: orally per package directions No Action dextroamphetamine-amphetamine [Adderall] 10 MG tablet 30 mg PO DAILY Qty: 0 levofloxacin 500 mg tablet 500 mg PO Q24H Qty: 10 0RF hydrocodone-acetaminophen 5-325 mg tablet 1 tab PO Q6H PRN (Reason: pain) Qty: 10 0RF diazepam [Valium] 5 mg tablet 5 mg PO Q12HR PRN (Reason: muscle spasm) Qty: 10 0RF levothyroxine 88 mcg Capsule 100 mcg PO DAILY Referrals: Lakia Lujan ARNP [Primary Care Provider] - Stand Alone Forms: Patient Portal/API
[2023-06-05 07:25] VITALS: BP 122/60; PULSE 78; RESP 18; O2SAT 94
[2023-06-05] MEDS: HYDROMORPHONE 1 MG INJ IM (07:26)
== END 2023-06-05 07:35 | disposition home or self-care (01) ==
PROVIDERS: Emergency Provider Emergency Medicine; PCP Nurse Practitioner Family
DX: M54.50 Low back pain, unspecified (principal); M79.604 Pain in right leg
CPT/HCPCS: 96372; 99283; J1170

== ENCOUNTER → 2023-06-13 08:55 | Outpatient (CLI) | payer BC, SELFPAY ==
[2023-06-03 15:01] VITALS: BMI 33.6
--- NOTE | 2023-06-13 08:56 | DI.RAD.S_ITS ---
PROCEDURE: XR LUMBAR SPINE MIN 4V INDICATIONS: Low back pain TECHNIQUE: 5 views of the lumbar spine were acquired, including bilateral oblique views. COMPARISON: None. FINDINGS: Bones: 5 nonrib-bearing vertebrae are present. There is normal bony alignment. No vertebral body compression fractures. No suspicious bony lesions mild degenerative disc changes throughout the lumbar spine. Mild L3-L4, L4-L5 and L5-S1 facet arthropathy.. Soft tissues: Overlying bowel gas pattern is normal. No suspicious soft tissue calcifications. Atherosclerotic calcifications in the abdominal and pelvic vasculature. Cholecystectomy clips. Oblique images: No pars defects. IMPRESSION: Multilevel degenerative disc disease. Multilevel facet arthropathy. No fracture. No acute osseous lesion. If symptoms and/or clinical suspicion for pathology persists, evaluation with MRI should be considered for further assessment. Dictated by: Erinn Leal MD, PhD on 06/13/2023 at 9:59 Approved by: Erinn Leal MD, PhD on 06/13/2023 at 10:00
== END ==
PROVIDERS: PCP Nurse Practitioner Family; Referring Provider Anesthesiology; Visit Provider Anesthesiology
DX: M51.36 Other intervertebral disc degeneration, lumbar region (principal); M47.816 Spondylosis without myelopathy or radiculopathy, lumbar region; M47.817 Spondylosis without myelopathy or radiculopathy, lumbosacral region; M54.50 Low back pain, unspecified; M79.606 Pain in leg, unspecified
CPT/HCPCS: 72110